=== PATIENT | male | born 1945 | race American Indian/Alaskan Native ===

== ENCOUNTER 2016-12-31 17:36 | Inpatient (IN) | payer MEDICARE, OTHER ==
[2016-12-31 17:51] VITALS: BMI 22.9
--- NOTE | 2016-12-31 19:07 | ED PDOC ---
Arrival/HPI - General Chief Complaint: Male Genitourinary Time Seen by Provider: 12/31/16 18:00 Historian: Spouse - History of Present Illness Narrative History of Present Illness (Text): 12/31/16 19:04 71 year old male presents with blood return in catheter after jackson catheter change at home. states a visiting nurse was trying to change the catheter at home and noticed blood return after placing the new catheter so she pulled the catheter out. states this is the second time this has happened. She says the pt has a chronic jackson due to "bed sores," no retention. reports patient is nonverbal and bedridden at baseline. PMD: Dr. Betts Time/Duration: 24 hours Symptom Onset: Sudden Symptom Course: Unchanged Modifying Factors (Text): None Associated Symptoms (Text): None Past Medical History - Provider Review Nursing Documentation Reviewed: Yes - Infectious Disease Hx of Infectious Diseases: MRSA - Tetanus Immunization Tetanus Immunization: Unknown - Cardiac Hx Hypertension: Yes Hx Pacemaker: No - Pulmonary Hx Respiratory Disorders: No - Neurological Hx Alzheimer's Disease: No HX Cerebrovascular Accident: Yes - HEENT Hx HEENT Disorder: Yes (peg tube) Hx Difficulty Chewing: Yes Hx Glaucoma: Yes (LASER SURGERY) - Renal Hx Renal Disorder: Yes - Endocrine/Metabolic Hx Diabetes Mellitus Type 1: Yes - Hematological/Oncological Hx Blood Transfusions: No Hx Blood Transfusion Reaction: No - Integumentary Other/Comment: multiple decubiti ulcers to sacrum and buttocks, b/l heel wounds , peg insertion site priyanka clear drainage noted - Musculoskeletal/Rheumatological Hx Falls: No - Gastrointestinal Hx Gastrointestinal Disorders: Yes (PEG) Hx Colostomy: Yes Hx Gastroesophageal Reflux: Yes - Genitourinary/Gynecological Hx Genitourinary Disorders: Yes Hx Incontinence: Yes - Psychiatric Hx Emotional Abuse: No Hx Physical Abuse: No Hx Substance Use: No - Past Surgical History Past Surgical History: Unable to Obtain - Surgical History Other/Comment: colostomy, picc in and out - Anesthesia Hx Anesthesia: Yes Hx Anesthesia Reactions: No Hx Malignant Hyperthermia: No - Suicidal Assessment Feels Threatened In Home Enviroment: No Family/Social History - Physician Review Nursing Documentation Reviewed: Yes Family/Social History: Unknown Family HX Smoking Status: Never Smoked Hx Alcohol Use: No Hx Substance Use: No Hx Substance Use Treatment: No Allergies/Home Meds Allergies/Adverse Reactions: Allergies Latex, Natural Rubber Adverse Reaction (Verified 12/31/16 17:51) SWELLING Home Medications: Home Meds Medication Instructions Recorded Confirmed Donepezil HCl [Aricept] 10 mg PO DAILY 12/31/16 12/31/16 Folic Acid 1 mg PO DAILY 12/31/16 12/31/16 Latanoprost 0.005% Opht [XALATAN 1 drp OD DAILY 12/31/16 12/31/16 2.5 Ml] Metoprolol Tartrate [Lopressor] 50 mg PO DAILY 12/31/16 12/31/16 Multivit-Min/FA/Lycopen/Lutein 1 each PO DAILY 12/31/16 12/31/16 [Centrum Silver Tablet] Nut.tx.gluc.intoler,Lac-Fr,Soy 237 ml PO DAILY 12/31/16 12/31/16 [Ensure Glucerna Shake 237 ml] Omeprazole 40 mg PO DAILY 12/31/16 12/31/16 levETIRAcetam [Keppra] 500 mg PO BID 12/31/16 12/31/16 Review of Systems - Review of Systems Systems not reviewed;Unavailable: Other (Nonverbal at baseline) Genitourinary Male: Other (Blood return from catheter) Physical Exam Vital Signs Reviewed: Yes Vital Signs Temp Pulse Resp BP Pulse Ox 12/31/16 23:53 111 H 18 105/64 96 12/31/16 20:56 98 F 100 H 18 127/50 L 100 12/31/16 17:56 98.0 F 74 18 115/71 96 Temperature: Afebrile Blood Pressure: Normal Pulse: Regular Respiratory Rate: Normal Appearance: Positive for: Well-Appearing, Non-Toxic, Comfortable Pain Distress: None Mental Status: Positive for: other (Nonverbal at baseline) - Systems Exam Head: Present: Atraumatic Pupils: Present: PERRL Conjunctiva: Present: Normal Mouth: Present: Moist Mucous Membranes Neck: No: Meningeal Signs Respiratory/Chest: Present: Clear to Auscultation, Good Air Exchange. No: Respiratory Distress, Accessory Muscle Use Cardiovascular: Present: Regular Rate and Rhythm, Normal S1, S2. No: Murmurs Abdomen: Present: Normal Bowel Sounds, Other (Colostomy bag, G-tube in place). No: Tenderness, Distention, Peritoneal Signs Genitourinary Male: Present: Other (Blood clot at urethral meatus) Upper Extremity: Present: Other (Extremities contracted). No: Cyanosis, Edema Lower Extremity: Present: Other (Extremities contracted). No: Edema Neurological: Present: Other (extremities contracted. pt not cooperative w full neuro exam. no focal deficits appreciated.) Skin: Present: Warm, Dry, Other (decub ulcers buttock) Psychiatric: Present: Other (Nonverbal at baseline) Medical Decision Making ED Course and Treatment: pt has latex allergy- latex-free jackson acquired from [facility] however I was unable to pass this catheter. will admit for uro evaluation tomorrow. emily Betts who will admit, req uro consult emily santillan urologist Dr Stephens - Codie Statement The provider has reviewed the documentation as recorded by the Codie Nelson Provider Scribe Attestation: All medical record entries made by the Cliffibe were at my direction and personally dictated by me. I have reviewed the chart and agree that the record accurately reflects my personal performance of the history, physical exam, medical decision making, and the department course for this patient. I have also personally directed, reviewed, and agree with the discharge instructions and disposition. Disposition/Present on Arrival - Present on Arrival Any Indicators Present on Arrival: No History of DVT/PE: No History of Uncontrolled Diabetes: No Urinary Catheter: No History of Decub. Ulcer: No History Surgical Site Infection Following: None - Disposition Have Diagnosis and Disposition been Completed?: Yes Diagnosis: Hematuria Disposition: HOSPITALIZED Disposition Time: 23:09 Patient Problems: Current Active Problems Problem Status Diagnosed Hematuria Acute Condition: STABLE
[2016-12-31 23:13] LABS: ADD MANUAL DIFF? NO
[2016-12-31 23:20] LABS: BASO # 0.03 K/mm3 (0.0-2.0); BASO % 0.2 % (0.0-3.0); EOS % 0.3 % (1.5-5.0); GRAN # 15.04 (1.4-6.5); GRAN % 95.4 % (50.0-68.0); HEMATOCRIT 32.1 % (42.0-52.0); LYMPH # 0.3 (1.2-3.4); LYMPH % 2.1 % (22.0-35.0); MEAN CELL VOLUME 80.5 fL (80.0-105.0); MEAN CORPUSCULAR HEMOGLOBIN 27.1 pg (25.0-35.0); MEAN CORPUSCULAR HGB CONC 33.6 g/dl (31.0-37.0); MEAN PLATELET VOLUME 8.9 fl (7.0-11.0); MONO # 0.3 (0.1-0.6); PLATELET COUNT 459 10^3/uL (120.0-450.0); RED CELL DISTRIBUTION WIDTH 16.2 % (11.5-14.5); WHITE BLOOD COUNT 15.8 10^3/ul (4.5-11.0)
[2016-12-31 23:31] LABS: ALB/GLOB RATIO 0.5 (1.1-1.8); ALKALINE PHOSPHATASE 196 U/L (38-133); ALT/SGPT 59 U/L (7-56); AST/SGOT 72 U/L (15-59); BILIRUBIN,TOTAL 0.5 mg/dL (0.2-1.3); BLOOD UREA NITROGEN 18 mg/dL (7-21); CALCIUM 9.5 mg/dL (8.4-10.5); CARBON DIOXIDE 25 mmol/L (21-33); CHLORIDE 103 mmol/L (98-107); GFR AFRICAN-AMERICAN > 60; GLUCOSE,RANDOM 153 mg/dL (70-110); SODIUM 136 mmol/L (132-148); TOTAL PROTEIN 9.7 g/dL (5.8-8.3)
[2017-01-01] MEDS ORDERED: Sodium Chloride 0.9% 1,000 ML IV SCH (01:00)
[2017-01-01] MEDS: Multi Vitamins 15 mL UD Oral Solution PO SCH (11:15)
[2017-01-01] MEDS: levETIRAcetam 500 mg/5ml UD cups PO SCH ×2 (11:15→18:39)
[2017-01-01 11:32] LABS: PH,URINE 8.5 (4.7-8.0); URINE BILIRUBIN SMALL (NEGATIVE); URINE BLOOD LARGE (NEGATIVE); URINE GLUCOSE (UA) NEGATIVE (NEGATIVE); URINE KETONE TRACE mg/dL (NEGATIVE); URINE LEUKOCYTE ESTERASE LARGE Leu/uL (NEGATIVE); URINE PROTEIN 100 mg/dL (<30 mg/dL)
[2017-01-01 11:35] LABS: URINE APPEARANCE TURBID (CLEAR); URINE COLOR RED (YELLOW)
[2017-01-01 11:45] LABS: URINE BACTERIA MOD (NEG); URINE EPITHELIAL CELLS 0 - 2 /hpf (0-5); URINE RBC TNTC /hpf (0-2); URINE WBC 15 - 20 /hpf (0-6)
[2017-01-01] MEDS: cefTRIAXone 1 gm 100 ML IVPB SCH (12:20)
[2017-01-01] MEDS: Sodium Chloride 0.45% 1,000 ML IV SCH (12:21)
--- NOTE | 2017-01-01 12:58 | HP ---
HISTORY OF PRESENT ILLNESS: I know the patient very well for many years of doing house calls. I received a phone call last night from a visiting nurse who tried to change his Machado catheter at home. She could not get the new Machado in place, blood was everywhere. We sent to the Emergency Room thinking the Emergency Room could replace the Machado yesterday. Apparently HE IS ALLERGIC TO LATEX and they could not have a non-latex Machado catheter anywhere in the hospital to be found, so we kept overnight to see if the could bring one in from home. She brought one in from home and apparently they could not put it in, so I discussed this with the nurse at this time to do it with the house doctor. I also called in urology and the nurse told me the urologist will not come in today to do this. Also, I just found out this morning, that he has a 15,000 white count, nobody let me know that, so I am going to make him an inpatient, put him on IV antibiotics, get infectious disease involved and give him IV fluids and see if we can get the Machado in and may be in the next day or 2, urology can reassess the situation. He is bedbound; contracted; dementia; colostomy; feeding tube; nonverbal; multiple bedsores, heels sacrum in and out of stages; he is nonverbal at home for years. He had a CVA, he had glaucoma, laser surgery, he has diabetes. Decubitus ulcers, multiple on the sacrum, the ulcers on the heels I want to get surgery to look at him while he is here, colostomy, PEG tube, reflux, he is incontinent. ALLERGIES: LATEX AND NATURAL RUBBER ADVERSE REACTION WITH SWELLING. MEDICATIONS: He is on Aricept, folic acid, Xalatan, Lopressor, Centrum Silver, Glucerna, omeprazole, Keppra for seizures which he also has. He is nonverbal, but he is less aware and less responsive than he usually is. He appears septic, he is not looking his baseline for me. PHYSICAL EXAMINATION: VITAL SIGNS: He has a 98 temp, 111 pulse, 18 respiratory rate, 105/64 blood pressure, 96% O2 sat on room air. HEENT: Head is atraumatic, normocephalic. His eyes are staring up. Throat is dry. NECK: supple HEART: Regular rate. LUNGS: Decreased breath sounds, poor inspiration. ABDOMEN: Soft, has a colostomy, a feeding tube which is okay. EXTREMITIES: He has contracture in all 4 extremities with ulcers on his heels and sacrum area all in different levels of healing. NEUROLOGIC: Head atraumatic. Extraocular muscles are not following anything. Not alert at all. LABORATORY DATA: [place] 406[address].8 white count, 10.8 hemoglobin, 32.1 hematocrit , 459, platelets. Sodium 136, potassium 5, BUN 18, creatinine 0.9, GFR is greater than 60, sugar is 153, calcium 9.5, AST 72, ALT is 59, alkaline phosphatase is 196. His liver enzymes are elevated, I will call in GI for evaluation. Urine is large leukocytes, moderate bacteria. He is here for hematuria with Machado change, urinary tract infection 15,000 white count could be urosepsis. I called in urology: I will call in gastrointestinal, infectious disease and surgery for his multiple decubitus ulcers. Maykel Betts DO cc: [id number] TT: 01/01/2017 12:57:30 jn MTDD
[2017-01-01] MEDS: metroNIDAZOLE IV 500 mg/100 ml 100 ML IVPB SCH ×2 (14:19→22:48)
[2017-01-01] MEDS: Cefepime IV 2 gm in NS 100 ML IVPB SCH ×2 (14:20→22:48)
[2017-01-01] MEDS: Vancomycin 1gm in NS 250ml 250 ML IVPB SCH (14:21)
[2017-01-01] MEDS: Latanoprost 2.5 ml Opht Soln OD SCH (22:49)
[2017-01-02] MEDS: Vancomycin 1gm in NS 250ml 250 ML IVPB SCH ×2 (02:00→15:14)
[2017-01-02] MEDS: Cefepime IV 2 gm in NS 100 ML IVPB SCH (05:17)
--- NOTE | 2017-01-02 06:24 | CP.PCM.PN ---
Subjective - Date & Time of Evaluation Date of Evaluation: 01/01/17 Time of Evaluation: 22:00 - Subjective Subjective: # 24 angiocath was inserted in left arm. Dx:Poor venous access. Objective - Vital Signs/Intake and Output Vital Signs (last 24 hours): Temp Pulse Resp BP Pulse Ox 97.4 F L 84 22 100/60 98 01/01/17 16:24 01/01/17 18:39 01/01/17 16:24 01/01/17 18:39 01/01/17 16:24 Intake and Output: 01/01/17 01/02/17 18:59 06:59 Intake Total 1470 Output Total 1600 Balance -130 - Medications Medications: Current Medications Donepezil HCl (Aricept) 10 mg PO HS [facility] Last Admin: 01/01/17 22:48 Dose: 10 mg Folic Acid (Folic Acid) 1 mg PO DAILY [facility] Last Admin: 01/01/17 11:16 Dose: 1 mg Ceftriaxone Sodium (Rocephin 1 Gram Ivpb) 100 mls @ 100 mls/hr IVPB DAILY [facility] PRN Reason: Protocol Last Admin: 01/01/17 12:20 Dose: Not Given Sodium Chloride (Sodium Chloride 0.45%) 1,000 mls @ 40 mls/hr IV .Q24H [facility] Last Admin: 01/01/17 12:21 Dose: Not Given Cefepime HCl (Maxipime 2gm) 100 mls @ 100 mls/hr IVPB Q8 [facility] PRN Reason: Protocol Stop: 01/06/17 14:01 Last Admin: 01/02/17 05:17 Dose: 100 mls/hr Metronidazole (Flagyl) 100 mls @ 100 mls/hr IVPB Q8 [facility] PRN Reason: Protocol Last Admin: 01/01/17 22:48 Dose: 100 mls/hr Vancomycin HCl (Vancomycin 1gm) 250 mls @ 167 mls/hr IVPB Q12H [facility] PRN Reason: Protocol Last Admin: 01/02/17 02:00 Dose: 167 mls/hr Latanoprost (Xalatan Opht) 1 ml OD HS [facility] Last Admin: 01/01/17 22:49 Dose: 1 ml Levetiracetam (Keppra) 500 mg PO BID [facility] Last Admin: 01/01/17 18:39 Dose: 500 mg Metoprolol Tartrate (Lopressor) 25 mg PO BID [facility] Last Admin: 01/01/17 18:39 Dose: 25 mg Multivitamins/Vitamin C (Multi-Delyn Liquid) 15 ml PO DAILY [facility] Last Admin: 01/01/17 11:15 Dose: 15 ml Pantoprazole Sodium (Protonix Susp) 40 mg PO DAILY [facility]
[2017-01-02] MEDS: metroNIDAZOLE IV 500 mg/100 ml 100 ML IVPB SCH ×2 (06:43→13:09)
[2017-01-02 07:33] LABS: HEMATOCRIT 27.9 % (42.0-52.0); MEAN CELL VOLUME 79.9 fL (80.0-105.0); MEAN CORPUSCULAR HEMOGLOBIN 26.6 pg (25.0-35.0); MEAN CORPUSCULAR HGB CONC 33.3 g/dl (31.0-37.0); MEAN PLATELET VOLUME 9.1 fl (7.0-11.0); RED CELL DISTRIBUTION WIDTH 16.5 % (11.5-14.5); WHITE BLOOD COUNT 9.9 10^3/ul (4.5-11.0)
--- NOTE | 2017-01-02 07:45 | CP.PCM.CON ---
History of Present Illness - History of Present Illness History of Present Illness: Asked by Dr. Betts for a GI consultation on this patient. 71 year old male with history of multiple CVAs, advanced dementia (non-verbal at baseline), recurrent UTI, stage IV sacral and heel ulcers (patient bed ridden) s/p diverting colostomy, DM, HTN, who is admitted to hospital for evaluation of hematuria and sepsis. GI called for evaluation of elevated LFTs. Patient himself is not able to communicate effectively and therefore additional information obtained via chart review, discussion with nursing staff, and patient family member. There is no reported abdominal pain, nausea, vomiting, fever/chills. Review of vitals from yesterday afternoon are normal. Social history: unable to obtain due to patient mental status Family history: unable to obtain due to patient mental status Review of Systems - Review of Systems Systems not reviewed;Unavailable: Dementia Past Patient History - Infectious Disease Hx of Infectious Diseases: MRSA - Tetanus Immunizations Tetanus Immunization: Unknown - Past Social History Smoking Status: Never Smoked - CARDIAC Hx Hypertension: Yes - PULMONARY Hx Respiratory Disorders: No - NEUROLOGICAL Hx Alzheimer's Disease: Yes HX Cerebrovascular Accident: Yes - HEENT Hx HEENT Problems: Yes (peg tube) Hx Difficulty Chewing: Yes Hx Glaucoma: Yes (LASER SURGERY) - RENAL Hx Chronic Kidney Disease: Yes - ENDOCRINE/METABOLIC Hx Diabetes Mellitus Type 1: Yes - HEMATOLOGICAL/ONCOLOGICAL Hx Blood Disorders: No - INTEGUMENTARY Other/Comment: multiple decubiti ulcers to sacrum and buttocks, b/l heel wounds , 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 - MUSCULOSKELETAL/RHEUMATOLOGICAL Hx Falls: No - GASTROINTESTINAL Hx Gastrointestinal Disorders: Yes (PEG) Hx Colostomy: Yes Hx Gastroesophageal Reflux: Yes - GENITOURINARY/GYNECOLOGICAL Hx Genitourinary Disorders: Yes Hx Incontinence: Yes - PSYCHIATRIC Hx Emotional Abuse: No Hx Physical Abuse: No - SURGICAL HISTORY Hx Surgeries: Yes Other/Comment: colostomy, picc in and out - ANESTHESIA Hx Anesthesia: Yes Hx Anesthesia Reactions: No Hx Malignant Hyperthermia: No Meds Allergies/Adverse Reactions: Allergies Allergy/AdvReac Type Severity Reaction Status Date / Time Latex, Natural Rubber AdvReac SWELLING Verified 12/31/16 17:51 - Medications Medications: Current Medications Donepezil HCl (Aricept) 10 mg PO HS [facility] Last Admin: 01/01/17 22:48 Dose: 10 mg Folic Acid (Folic Acid) 1 mg PO DAILY [facility] Last Admin: 01/01/17 11:16 Dose: 1 mg Ceftriaxone Sodium (Rocephin 1 Gram Ivpb) 100 mls @ 100 mls/hr IVPB DAILY [facility] PRN Reason: Protocol Last Admin: 01/01/17 12:20 Dose: Not Given Sodium Chloride (Sodium Chloride 0.45%) 1,000 mls @ 40 mls/hr IV .Q24H [facility] Last Admin: 01/01/17 12:21 Dose: Not Given Cefepime HCl (Maxipime 2gm) 100 mls @ 100 mls/hr IVPB Q8 [facility] PRN Reason: Protocol Stop: 01/06/17 14:01 Last Admin: 01/02/17 05:17 Dose: 100 mls/hr Metronidazole (Flagyl) 100 mls @ 100 mls/hr IVPB Q8 [facility] PRN Reason: Protocol Last Admin: 01/02/17 06:43 Dose: 100 mls/hr Vancomycin HCl (Vancomycin 1gm) 250 mls @ 167 mls/hr IVPB Q12H [facility] PRN Reason: Protocol Last Admin: 01/02/17 02:00 Dose: 167 mls/hr Latanoprost (Xalatan Opht) 1 ml OD HS [facility] Last Admin: 01/01/17 22:49 Dose: 1 ml Levetiracetam (Keppra) 500 mg PO BID [facility] Last Admin: 01/01/17 18:39 Dose: 500 mg Metoprolol Tartrate (Lopressor) 25 mg PO BID [facility] Last Admin: 01/01/17 18:39 Dose: 25 mg Multivitamins/Vitamin C (Multi-Delyn Liquid) 15 ml PO DAILY [facility] Last Admin: 01/01/17 11:15 Dose: 15 ml Pantoprazole Sodium (Protonix Susp) 40 mg PO DAILY [facility] Physical Exam - Constitutional Appears: No Acute Distress, Cachectic, Chronically Ill - Head Exam Head Exam: NORMAL INSPECTION - Eye Exam Eye Exam: Normal appearance, PERRL - ENT Exam ENT Exam: Mucous Membranes Dry - Respiratory Exam Additional comments: coarse breath sounds b/l lung collado - Cardiovascular Exam Cardiovascular Exam: REGULAR RHYTHM, +S1, +S2 - GI/Abdominal Exam GI & Abdominal Exam: Normal Bowel Sounds, Soft Additional comments: non tender to palpation in four quadrants no palpable hepato/splenomegaly PEG site appears clean/dry LLQ colostomy site with soft brown stool in bag - Extremities Exam Additional comments: b/l lower extremity heel ulcers - Neurological Exam Additional comments: Patient unable to participate in neurological exam - Psychiatric Exam Psychiatric exam: Normal Affect - Skin Skin Exam: Dry, Intact, Normal Color, Warm Results - Vital Signs Recent Vital Signs: Last Vital Signs Temp 97.4 F L 01/01/17 16:24 Pulse 84 01/01/17 18:39 Resp 22 01/01/17 16:24 BP 100/60 01/01/17 18:39 Pulse Ox 98 01/01/17 16:24 - Labs Result Diagrams: 12/31/16 23:05 12/31/16 23:05 Labs: Laboratory Results - last 24 hr 01/01/17 01/02/17 16:22 07:23 POC Glucose (mg/dL) 99 103 Assessment & Plan - Assessment and Plan (Free Text) Assessment: Multiple CVAs Advanced dementia Stage IV sacral and heel ulcers Hematuria - resolved Sepsis - UTI Transaminitis - unclear etiology, possibly cholestasis of sepsis, hepatitis panel negative in August 2016 Plan: - Continue with tube feeding as tolerated, strict aspiration precautions with head elevation during feeding - Obtain abdominal US, avoid hepatotoxic therapy - Continue with antibiotic therapy as per ID - Awaiting results of blood and urine cultures - Will continue to monitor patient clinical course
--- NOTE | 2017-01-02 07:46 | RAD ---
HISTORY: r/o pneumothorax COMPARISON: No prior. FINDINGS: LUNGS: No active pulmonary disease. PLEURA: No significant pleural effusion identified, no pneumothorax apparent. CARDIOVASCULAR: Normal. OSSEOUS STRUCTURES: No significant abnormalities. VISUALIZED UPPER ABDOMEN: Normal. OTHER FINDINGS: None. IMPRESSION: No active disease.
[2017-01-02 07:51] LABS: ALB/GLOB RATIO 0.6 (1.1-1.8); ALKALINE PHOSPHATASE 175 U/L (38-133); ALT/SGPT 59 U/L (7-56); AST/SGOT 55 U/L (15-59); BILIRUBIN,TOTAL 0.2 mg/dL (0.2-1.3); BLOOD UREA NITROGEN 18 mg/dL (7-21); CARBON DIOXIDE 23 mmol/L (21-33); CHLORIDE 107 mmol/L (95-110); GFR AFRICAN-AMERICAN > 60; GLUCOSE,RANDOM 88 mg/dL (70-110); POTASSIUM 4.5 mmol/L (3.6-5.0); SODIUM 139 mmol/L (132-148); TOTAL PROTEIN 8.1 g/dL (5.8-8.3)
[2017-01-02] MEDS: Multi Vitamins 15 mL UD Oral Solution PO SCH (10:15)
[2017-01-02] MEDS: Pantoprazole 40 mg Susp UD PO SCH (10:15)
[2017-01-02] MEDS: levETIRAcetam 500 mg/5ml UD cups PO SCH ×2 (10:15→18:03)
[2017-01-02] MEDS: cefTRIAXone 1 gm 100 ML IVPB SCH (10:16)
--- NOTE | 2017-01-02 10:47 | PN ---
DATE: 01/02/2017 I know the patient very well from house calls and hospital visits. He is currently being seen by Dr. Geller for elevated LFTs, surgery for multiple ulcers, urology for a Machado that they could not place, infectious disease for IV antibiotics. He is currently on IV fluids, Aricept, Flagyl IV, folic acid, Keppra for his seizure history, Lopress or, cefepime for infection, multivitamin, Protonix, Rocephin IV, vancomycin IV and Xalatan. His eyes are open. He was looking at me, but he does not speak. He had multiple CVAs and demented, contracted in bed and he is bedridden. PHYSICAL EXAMINATION: VITAL SIGNS: He has a 98.6 temp, 87 pulse, 117/61 blood pressure, 18 respiratory rate, 97% O2 sat on room air. HEENT: His head is atraumatic, normocephalic. His eyes are open, very much alert this morning, look ing at me. Throat is dry. HEART: Regular rate. LUNGS: Have decreased breath sounds, but clear to auscultation, not to his baseline, poor inspiratio n. ABDOMEN: Soft. He has got a colostomy and a feeding tube. GENITOURINARY: He has got a Machado placed in finally, latex-free, by the urologist. EXTREMITIES: Are all contracted. He has got heel ulcers and sacral ulcers, all in different levels of degree of healing. He has a white count that is down to 9.9 on antibiotics, 9.3 hemoglobin, 27.9 hematocrit with 410 malena telets. He has a 139 sodium, potassium 4.5, BUN is 18, creatinine 0.8, GFR is greater than 60, sugar is 88, calcium is 9, total bili is 0.2, AST is 55, ALT is 59, alk phos is 175 and total protein is 8 .1. His procalcitonin is 10.58, very high. He was seen by GI already. Chest x-ray showed no active disease. I believe he has got urosepsis. O rders were given by infectious disease. Waiting for surgery to populate. I will continue with IV an tibiotics. We will continue with aggressive treatment and care, IV antibiotics, wound care, GI eval, IV fluids, medicines and hopefully he will be improved and I am glad the Machado catheter was placed a nd there is no more blood in the urine. Maykel Betts DO cc: [id number] TT: 01/02/2017 10:45:57 Confirmation # [id number] Dictation # [id number]
--- NOTE | 2017-01-02 13:45 | CP.PCM.CON ---
History of Present Illness - History of Present Illness History of Present Illness: 71 year old male with PMH of CVA, DM, HTN, dementia, decubitus ulcer of the hip area, S/P colostomy on the left was brought in to [facility] because of hematuria from the Machado catheter as noted by the family. The patient also has hip decubitus ulcers. There is no note of fever, no convulsions , no loss of consciousness, no note of watery stools in the colostomy bag. Full review of systems is difficult to obtain because of the patient's dementia. Infectious diseases consult is requested to further evaluate and manage. Review of Systems - Review of Systems Systems not reviewed;Unavailable: Dementia Past Patient History - Infectious Disease Hx of Infectious Diseases: MRSA - Tetanus Immunizations Tetanus Immunization: Unknown - Past Social History Smoking Status: Never Smoked - CARDIAC Hx Hypertension: Yes - PULMONARY Hx Respiratory Disorders: No - NEUROLOGICAL Hx Alzheimer's Disease: Yes HX Cerebrovascular Accident: Yes - HEENT Hx HEENT Problems: Yes (peg tube) Hx Difficulty Chewing: Yes Hx Glaucoma: Yes (LASER SURGERY) - RENAL Hx Chronic Kidney Disease: Yes - ENDOCRINE/METABOLIC Hx Diabetes Mellitus Type 1: Yes - HEMATOLOGICAL/ONCOLOGICAL Hx Blood Disorders: No - INTEGUMENTARY Other/Comment: multiple decubiti ulcers to sacrum and buttocks, b/l heel wounds , 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 - MUSCULOSKELETAL/RHEUMATOLOGICAL Hx Falls: No - GASTROINTESTINAL Hx Gastrointestinal Disorders: Yes (PEG) Hx Colostomy: Yes Hx Gastroesophageal Reflux: Yes - GENITOURINARY/GYNECOLOGICAL Hx Genitourinary Disorders: Yes Hx Incontinence: Yes - PSYCHIATRIC Hx Emotional Abuse: No Hx Physical Abuse: No - SURGICAL HISTORY Hx Surgeries: Yes Other/Comment: colostomy, picc in and out - ANESTHESIA Hx Anesthesia: Yes Hx Anesthesia Reactions: No Hx Malignant Hyperthermia: No Meds Allergies/Adverse Reactions: Allergies Allergy/AdvReac Type Severity Reaction Status Date / Time Latex, Natural Rubber AdvReac SWELLING Verified 12/31/16 17:51 - Medications Medications: Current Medications Donepezil HCl (Aricept) 10 mg PO HS [facility] Folic Acid (Folic Acid) 1 mg PO DAILY [facility] Last Admin: 01/01/17 11:16 Dose: 1 mg Sodium Chloride (Sodium Chloride 0.9%) 1,000 mls @ 83 mls/hr IV .Q12H3M [facility] Ceftriaxone Sodium (Rocephin 1 Gram Ivpb) 100 mls @ 100 mls/hr IVPB DAILY [facility] PRN Reason: Protocol Sodium Chloride (Sodium Chloride 0.45%) 1,000 mls @ 40 mls/hr IV .Q24H [facility] Cefepime HCl (Maxipime 2gm) 100 mls @ 100 mls/hr IVPB Q8 [facility] PRN Reason: Protocol Stop: 01/06/17 14:01 Metronidazole (Flagyl) 100 mls @ 100 mls/hr IVPB Q8 [facility] PRN Reason: Protocol Vancomycin HCl (Vancomycin 1gm) 250 mls @ 167 mls/hr IVPB Q12H [facility] PRN Reason: Protocol Latanoprost (Xalatan Opht) 1 ml OD HS [facility] Levetiracetam (Keppra) 500 mg PO BID [facility] Last Admin: 01/01/17 11:15 Dose: 500 mg Metoprolol Tartrate (Lopressor) 25 mg PO BID [facility] Last Admin: 01/01/17 11:35 Dose: 25 mg Multivitamins/Vitamin C (Multi-Delyn Liquid) 15 ml PO DAILY [facility] Last Admin: 01/01/17 11:15 Dose: 15 ml Pantoprazole Sodium (Protonix Susp) 40 mg PO DAILY [facility] Physical Exam - Constitutional Appears: Non-toxic, No Acute Distress - Head Exam Head Exam: NORMAL INSPECTION - ENT Exam ENT Exam: Mucous Membranes Moist - Neck Exam Neck exam: Negative for: Lymphadenopathy, Meningismus - Respiratory Exam Respiratory Exam: Decreased Breath Sounds - Cardiovascular Exam Cardiovascular Exam: +S1, +S2 - GI/Abdominal Exam GI & Abdominal Exam: Soft. absent: Tenderness Additional comments: left sided colostomy in place - Extremities Exam Additional comments: bilateral hip area decubitus ulcers with dry dressings in place Results - Vital Signs Recent Vital Signs: Last Vital Signs Temp 97.8 F 01/01/17 07:56 Pulse 93 H 01/01/17 11:35 Resp 20 01/01/17 07:56 BP 102/55 L 01/01/17 11:35 Pulse Ox 99 01/01/17 07:56 - Labs Result Diagrams: 01/02/17 07:30 01/02/17 07:30 Assessment & Plan - Assessment and Plan (Free Text) Plan: Assessment consider infected decubitus ulcers of the right and left hip areas history of UTI with Pseudomonas history of C diff associated diarrhea CVA DM HTN dementia decubitus ulcer of the hip area Plan started Vancomycin and meropenem pending final wound and blood cx results will monitor clinically
[2017-01-02] MEDS: Meropenem 1g/NS 100mL IVPB 100 ML IVPB SCH ×2 (14:10→21:08)
[2017-01-02] MEDS: Sodium Chloride 0.45% 1,000 ML IV SCH (15:15)
--- NOTE | 2017-01-02 16:01 | US ---
HISTORY: elevated LFTs COMPARISON: None. TECHNIQUE: Sonographic evaluation of the abdomen. FINDINGS: LIVER: Measures cm. Normal echogenicity of the liver parenchyma. No mass. No intrahepatic bile duct dilatation. GALLBLADDER: Unremarkable. No gallstones. COMMON BILE DUCT: Measures mm. No stones. No dilatation. PANCREAS: Unremarkable as visualized. No mass. No ductal dilatation. RIGHT KIDNEY: Measures cm. 1.3 centimeter cyst. LEFT KIDNEY: Measures cm. 3.1 centimeter cyst. SPLEEN: 14 centimeters. AORTA: No aneurysmal dilatation. IVC: Unremarkable. OTHER FINDINGS: None. IMPRESSION: Bilateral simple renal cysts. Mild splenomegaly.
--- NOTE | 2017-01-02 16:21 | CP.PCM.CON ---
History of Present Illness - History of Present Illness History of Present Illness: Surgery Consult Note. Dr. Carney 71yo M with PMHx of CVA, DM, HTN, Dementia, Decubitus ulcers hip and sacrum, colostomy, PEG brought in by family for evaluation of hematuria. Hx obtained from chart review. Patient has a hx of contractures secondary to multiple previous CVAs. Patient uses chronic jackson's at home due to patient being bed bound. Advanced dementia, nonverbal at baseline. Surgical consult was obtained for multiple wounds on sacrum, bilateral hips and superficial ulcer on right foot. Complete ROS unobtainable due to patient condition. Patient does not seem to have any abdominal pain. No apparent complaints. PMD: Dr. Betts PMHx: Multiple CVAs, DM, HTN, Advanced Dementia (non-verbal), Decubitus ulcer bilateral hip and sacrum, Diverting colostomy, PEG PSHx: Unknown. Diverting colostomy, PEG Social Hx: Lives at home with . Unknown Family Hx: unobtainable Allergy: Latex Review of Systems - Review of Systems Systems not reviewed;Unavailable: Dementia, Altered Mental Status Past Patient History - Infectious Disease Hx of Infectious Diseases: MRSA - Tetanus Immunizations Tetanus Immunization: Unknown - Past Social History Smoking Status: Never Smoked - CARDIAC Hx Hypertension: Yes - PULMONARY Hx Respiratory Disorders: No - NEUROLOGICAL Hx Alzheimer's Disease: Yes HX Cerebrovascular Accident: Yes - HEENT Hx HEENT Problems: Yes (peg tube) Hx Difficulty Chewing: Yes Hx Glaucoma: Yes (LASER SURGERY) - RENAL Hx Chronic Kidney Disease: Yes - ENDOCRINE/METABOLIC Hx Diabetes Mellitus Type 1: Yes - HEMATOLOGICAL/ONCOLOGICAL Hx Blood Disorders: No - INTEGUMENTARY Other/Comment: multiple decubiti ulcers to sacrum and buttocks, b/l heel wounds , peg insertion site priyanka clear drainage noted - MUSCULOSKELETAL/RHEUMATOLOGICAL Hx Falls: No - GASTROINTESTINAL Hx Gastrointestinal Disorders: Yes (PEG) Hx Colostomy: Yes Hx Gastroesophageal Reflux: Yes - GENITOURINARY/GYNECOLOGICAL Hx Genitourinary Disorders: Yes Hx Incontinence: Yes - PSYCHIATRIC Hx Emotional Abuse: No Hx Physical Abuse: No - SURGICAL HISTORY Hx Surgeries: Yes Other/Comment: colostomy, picc in and out - ANESTHESIA Hx Anesthesia: Yes Hx Anesthesia Reactions: No Hx Malignant Hyperthermia: No Meds Allergies/Adverse Reactions: Allergies Allergy/AdvReac Type Severity Reaction Status Date / Time Latex, Natural Rubber AdvReac SWELLING Verified 12/31/16 17:51 - Medications Medications: Current Medications Donepezil HCl (Aricept) 10 mg PO HS [facility] Last Admin: 01/01/17 22:48 Dose: 10 mg Folic Acid (Folic Acid) 1 mg PO DAILY [facility] Last Admin: 01/02/17 10:14 Dose: 1 mg Sodium Chloride (Sodium Chloride 0.45%) 1,000 mls @ 40 mls/hr IV .Q24H [facility]CLUD[facility] Last Admin: 01/02/17 15:15 Dose: Not Given Vancomycin HCl (Vancomycin 1gm) 250 mls @ 167 mls/hr IVPB Q12H [facility] PRN Reason: Protocol Last Admin: 01/02/17 15:14 Dose: 167 mls/hr Meropenem 1g/NS 100mL IVPB (Meropenem 1g/Ns 100ml Ivpb) 100 mls @ 100 mls/hr IVPB Q8 [facility] PRN Reason: Protocol Stop: 01/09/17 14:01 Last Admin: 01/02/17 14:10 Dose: 100 mls/hr Latanoprost (Xalatan Opht) 1 ml OD HS [facility] Last Admin: 01/01/17 22:49 Dose: 1 ml Levetiracetam (Keppra) 500 mg PO BID [facility] Last Admin: 01/02/17 10:15 Dose: 500 mg Metoprolol Tartrate (Lopressor) 25 mg PO BID [facility] Last Admin: 01/02/17 10:14 Dose: 25 mg Multivitamins/Vitamin C (Multi-Delyn Liquid) 15 ml PO DAILY [facility] Last Admin: 01/02/17 10:15 Dose: 15 ml Pantoprazole Sodium (Protonix Susp) 40 mg PO DAILY [facility] Last Admin: 01/02/17 10:15 Dose: 40 mg Physical Exam - Constitutional Appears: No Acute Distress, Cachectic, Chronically Ill - Head Exam Head Exam: ATRAUMATIC, NORMAL INSPECTION, NORMOCEPHALIC Additional comments: Contracted head to the left - Cardiovascular Exam Cardiovascular Exam: absent: JVD - GI/Abdominal Exam GI & Abdominal Exam: Soft Additional comments: Soft, Nontender, nondistended. Colostomy in place with soft brown stool in bag. PEG site intact. - Extremities Exam Extremities exam: Positive for: normal inspection - Neurological Exam Additional comments: Baseline dementia - Skin Additional comments: R ishial decubitus: Stage 4. Foul smelling. dressing changed, clean and dry. L ishial decubitus: Stage 2, dressing changed clean and dry. Sacral Decubitus: Stage 1/2, Dressing changed clean and dry. healing well R foot with contracture and stage 1 ulcer on dorsal/medial aspect of foot. Results - Vital Signs Recent Vital Signs: Last Vital Signs Temp 98.6 F 01/02/17 08:00 Pulse 87 01/02/17 08:00 Resp 18 01/02/17 08:00 BP 139/60 01/02/17 10:14 Pulse Ox 97 01/02/17 08:00 - Labs Result Diagrams: 01/02/17 07:30 01/02/17 07:30 Labs: Laboratory Results - last 24 hr 01/01/17 01/02/17 01/02/17 16:22 07:23 07:30 WBC 9.9 D RBC 3.49 L Hgb 9.3 L Hct 27.9 L MCV 79.9 L MCH 26.6 MCHC 33.3 RDW 16.5 H Plt Count 410 MPV 9.1 Sodium 139 Potassium 4.5 Chloride 107 Carbon Dioxide 23 Anion Gap 14 BUN 18 Creatinine 0.8 Est GFR ( Amer) > 60 Est GFR (Non-Af Amer) > 60 POC Glucose (mg/dL) 99 103 Random Glucose 88 Calcium 9.0 Total Bilirubin 0.2 AST 55 ALT 59 H Alkaline Phosphatase 175 H Total Protein 8.1 Albumin 3.1 Globulin 5.0 Albumin/Globulin Ratio 0.6 L 01/02/17 16:03 WBC RBC Hgb Hct MCV MCH MCHC RDW Plt Count MPV Sodium Potassium Chloride Carbon Dioxide Anion Gap BUN Creatinine Est GFR ( Amer) Est GFR (Non-Af Amer) POC Glucose (mg/dL) 98 Random Glucose Calcium Total Bilirubin AST ALT Alkaline Phosphatase Total Protein Albumin Globulin Albumin/Globulin Ratio Assessment & Plan - Assessment and Plan (Free Text) Assessment: 71yo M with multiple decubiti: R Elial, L Ishial, Sacral. - Air Mattress - Turn patient q2h - Heel supports - Duoderm dressing changes prn. Alginate to R ischial - Jackson care - Colostomy care - GI, Urology, and ID consults noted - Continue ABX, f/u wound cxs Discussed case with Dr. Rommel Guerra PGY1 surgery pager: [phone] Proc: Central Venous Access - Time Out Time Out: Side verified, Site verified, Patient ID confirmed, Sterile procedures obs. - Procedure Procedure: Central Line placement: Right Technique:: Seldinger technique, Ultrasound guidance, Internal jugular vein - Consent obtained Consent obtained: Written - Performed by Performed by: Mid-level Provider - Indications Indication(s):: Peripheral vein unobtain., Mult.intravenous meds Contraindications: None Tube type:: Triple lumen - Local Anesthetic Local Anesthetic: Lidocaine: 5cc lidocaine - Number of Attempts Attempts: 3 - Complications Complications: Unable to obtain access.
[2017-01-02] MEDS: Latanoprost 2.5 ml Opht Soln OD SCH (21:09)
[2017-01-03] MEDS: Vancomycin 1gm in NS 250ml 250 ML IVPB SCH ×2 (03:50→15:07)
[2017-01-03] MEDS: Meropenem 1g/NS 100mL IVPB 100 ML IVPB SCH ×3 (05:52→23:08)
[2017-01-03 07:56] LABS: HEMATOCRIT 28.2 % (42.0-52.0); MEAN CELL VOLUME 80.8 fL (80.0-105.0); MEAN CORPUSCULAR HEMOGLOBIN 26.1 pg (25.0-35.0); MEAN CORPUSCULAR HGB CONC 32.3 g/dl (31.0-37.0); MEAN PLATELET VOLUME 9.3 fl (7.0-11.0); RED CELL DISTRIBUTION WIDTH 16.5 % (11.5-14.5); WHITE BLOOD COUNT 7.6 10^3/ul (4.5-11.0)
--- NOTE | 2017-01-03 08:17 | CON ---
DATE: 01/01/2017 CHIEF COMPLAINT: Machado catheter problem. HISTORY OF PRESENT ILLNESS: This is a 71-year-old male with a history of multiple CVAs and contracti ons, decubital ulcers, question of urinary retention versus an indwelling Machado catheter for wound pu rposes. The patient was at home. Apparently, VNS tried to change his Machado catheter unsuccessfully and had some bleeding and, therefore, the patient was sent to the Emergency Room to have the Machado ca theter placed. Apparently, the patient has a LATEX ALLERGY. In the Emergency Room, the patient did not have the Machado catheter replaced because there were no non-latex Machado catheters available at the hospital. Reportedly, a Machado catheter was obtained from [facility], at which time someone in the ER did attempt to place a Machado catheter, which is unclear whether that is the case or not. Baumann eusebio, this was unsuccessful. The patient was then admitted to the hospital. His family did bring a F o[place] catheter, which is at bedside. The patient has been voiding without difficulty into a [employer] cat heter, which has been in place since yesterday. The urine initially was blood tinged, but has now cl eared. A bladder scan done earlier in the day showed 120 mL and, by nursing report, the patient has been voiding adequately. He has no fever or chills. Urinalysis was infected; however, the patient h as history of an indwelling Machado catheter. The patient was admitted for wound care and antibiotics. PAST MEDICAL HISTORY: Multiple CVAs, contractions, question of urinary retention, multiple decubital ulcers, bedbound, nonverbal, dementia, diabetes. MEDICATIONS AT HOME INCLUDE: Aricept, folic acid, Xalatan, Lopressor, Glucerna, omeprazole, Keppra. ALLERGIES: LATEX and NATURAL RUBBER. FAMILY HISTORY: The patient lives at home. SOCIAL HISTORY: No smoking or ETOH use. REVIEW OF SYSTEMS: Could not be obtained other than what is present in the HPI. PHYSICAL EXAMINATION: GENERAL: The patient is in no acute distress. He is contracted, nonresponsive, in his hospital bed. VITAL SIGNS: He is afebrile. Temp of 97.4, pulse of 84, blood pressure 100/60, respirations 22. NECK: Shows no obvious mass or adenopathy. HEAD: Normocephalic, atraumatic. CHEST: Shows a normal inspiratory effort. CARDIAC: Positive S1, S2. There is no peripheral edema. ABDOMEN: Soft. There is a feeding tube and colostomy present. There is no apparent tenderness. GENITOURINARY: Bladder is not palpably distended, but it is difficult to tell. GENITOURINARY: Phallus is normal, uncircumcised, with a phimotic foreskin. Scrotum is normal. Test es are bilaterally descended. No tenderness noted. No mass noted. Epididymi, no tenderness or mass noted. EXTREMITIES: The patient is contracted in his upper and lower extremities. There are dressings on m ultiple decubital ulcers on his heels and lower back. LABORATORY DATA: The patient had a WBC count of 15.8. GFR greater than 60. Urinalysis: Positive n itrites, 15-20 WBCs, too numerous to count RBCs. RADIOLOGY: No imaging was done. IMPRESSION AND PLAN: This is an unfortunate 71-year-old male with history of multiple cerebrovascula r accidents. Urologically, the patient appears to be emptying adequately. Machado catheter was appare ntly placed because of incontinence and is currently being managed with a [place] catheter, which is wo rking well. Given his history, I was able to pass the 18-[place] silicone Machado catheter that the manisha mk had brought. There was no obstruction; however, was complicated by positioning patient properly and his phimotic foreskin. A Machado catheter is in place. Approximately 200 mL of cloudy yellow urin e was drained. The plan will be to maintain the Machado catheter. The patient is to receive antibioti cs and local wound care for his decubital ulcers. He can be discharged when medically stable, he tez uld continue with Machado catheter changes by VNS. However, patient can also likely be managed with a [place] catheter as it appears that he is able to void adequately. Talon Stephens MD cc: [phone] TT: 01/01/2017 17:38:30 Confirmation # [id number] Dictation # [id number] ania
[2017-01-03 08:30] LABS: ALB/GLOB RATIO 0.6 (1.1-1.8); ALKALINE PHOSPHATASE 179 U/L (38-133); ALT/SGPT 46 U/L (7-56); AST/SGOT 51 U/L (15-59); BILIRUBIN,TOTAL 0.2 mg/dL (0.2-1.3); BLOOD UREA NITROGEN 15 mg/dL (7-21); CALCIUM 9.1 mg/dL (8.4-10.5); CARBON DIOXIDE 23 mmol/L (21-33); CHLORIDE 109 mmol/L (95-110); GFR AFRICAN-AMERICAN > 60; GLUCOSE,RANDOM 79 mg/dL (70-110); POTASSIUM 4.2 mmol/L (3.6-5.0); SODIUM 140 mmol/L (132-148); TOTAL PROTEIN 8.1 g/dL (5.8-8.3)
--- NOTE | 2017-01-03 08:31 | RAD ---
HISTORY: r/o pneumo COMPARISON: 01/01/2017 FINDINGS: LUNGS: Minimal opacity right infrahilar region at right base, nonspecific. Followup advised. No other opacity elsewhere. PLEURA: No significant pleural effusion identified, no pneumothorax apparent. CARDIOVASCULAR: Oblique positioning. Prominent right hilum due to obliquity. No evidence lymphadenopathy. Normal heart size. OSSEOUS STRUCTURES: No significant abnormalities. VISUALIZED UPPER ABDOMEN: Normal. OTHER FINDINGS: None. IMPRESSION: Minimal right infrahilar basilar opacity common nonspecific. Followup advised.
--- NOTE | 2017-01-03 08:42 | PN ---
DATE: 01/03/2017 I saw the patient resting comfortably in bed. He is contracted. He is looking at me. His eyes are open. He is nonverbal. He is getting IVs, fluids and medicines. He has multiple skin ulcers. The Machado catheter was placed and it is draining clear. He has an old CVA, diabetes, hypertension, demen tia, decubitus ulcers of the hip and the feet and the heel. He has a colostomy. He has a PEG tube. He has a Machado catheter now in place. He is nonverbal, but is at his baseline. PHYSICAL EXAMINATION: VITAL SIGNS: 98.8 temp, 88 pulse, 121/71 blood pressure, 20 respiratory rate, 97% O2 sat on room air . HEENT: Head is atraumatic, normocephalic. Eyes are moving, looking at me. Mouth is open, moist. HEART: Regular rate. LUNGS: Decreased breath sounds with poor inspiration, but clear. ABDOMEN: Soft. Positive colostomy. Positive PEG tube. He has a Machado catheter in place. EXTREMITIES: Contracted. SKIN: He has multiple ulcers on his buttocks and heels. He is being seen by surgery and infectious disease. He is currently on Aricept, folic acid, Keppra, Lopressor, Merrem IV, multivitamin, Protonix, IV flui ds, vancomycin IV and Xalatan eyedrops. When I get the okay from infectious disease to change him to tablets, I can then discharge him. LABORATORY DATA: He had a 7.6 white count, 9.1 hemoglobin, 28.2 hematocrit with 421 platelets. Sodi um 139, potassium 4.5, BUN 18, creatinine 0.8, GFR is greater than 60, sugar is 88, calcium is 9. To fadia bili is 0.2, AST is 55, ALT is 59, alkaline phosphatase 175, total protein is 8.1. His procalcit onin was very high at 10.58. His urine was large blood when he came in with moderate bacteria. I do believe he is improving with the antibiotics. Will check his labs tomorrow as per infectious di jabier. Maykel Betts DO cc: [id number] TT: 01/03/2017 08:41:58 Confirmation # [id number] Dictation # [id number] mn
[2017-01-03] MEDS: Multi Vitamins 15 mL UD Oral Solution PO SCH (09:59)
[2017-01-03] MEDS: levETIRAcetam 500 mg/5ml UD cups PO SCH ×2 (10:00→17:17)
[2017-01-03] MEDS: Pantoprazole 40 mg Susp UD PO SCH (10:00)
--- NOTE | 2017-01-03 11:22 | CP.PCM.PN ---
<Tawana Poe - Last Filed: 01/03/17 12:12> Subjective - Date & Time of Evaluation Date of Evaluation: 01/03/17 Time of Evaluation: 11:19 - Subjective Subjective: Gastroenterology Fellow/PGY4 Progress Note Patient is nonverbal with history of advanced dementia. Moves arms to touch. Nursing denies acute events overnight. A 12-point review of systems unable to be completed with history of advanced dementia. Objective - Vital Signs/Intake and Output Vital Signs (last 24 hours): Temp Pulse Resp BP Pulse Ox 98.8 F 88 20 121/71 97 01/03/17 07:30 01/03/17 09:59 01/03/17 07:30 01/03/17 09:59 01/03/17 07:30 Intake and Output: 01/03/17 01/03/17 06:59 18:59 Intake Total 0 Output Total 850 Balance -850 - Medications Medications: Current Medications Donepezil HCl (Aricept) 10 mg PO HS [facility] Last Admin: 01/02/17 21:08 Dose: 10 mg Folic Acid (Folic Acid) 1 mg PO DAILY [facility] Last Admin: 01/03/17 09:59 Dose: 1 mg Sodium Chloride (Sodium Chloride 0.45%) 1,000 mls @ 40 mls/hr IV .Q24H [facility] Last Admin: 01/02/17 15:15 Dose: Not Given Vancomycin HCl (Vancomycin 1gm) 250 mls @ 167 mls/hr IVPB Q12H [facility] PRN Reason: Protocol Last Admin: 01/03/17 03:50 Dose: 167 mls/hr Meropenem 1g/NS 100mL IVPB (Meropenem 1g/Ns 100ml Ivpb) 100 mls @ 100 mls/hr IVPB Q8 [facility] PRN Reason: Protocol Stop: 01/09/17 14:01 Last Admin: 01/03/17 05:52 Dose: 100 mls/hr Latanoprost (Xalatan Opht) 1 ml OD HS [facility] Last Admin: 01/02/17 21:09 Dose: 1 ml Levetiracetam (Keppra) 500 mg PO BID [facility] Last Admin: 01/03/17 10:00 Dose: 500 mg Metoprolol Tartrate (Lopressor) 25 mg PO BID [facility] Last Admin: 01/03/17 09:59 Dose: 25 mg Multivitamins/Vitamin C (Multi-Delyn Liquid) 15 ml PO DAILY [facility] Last Admin: 01/03/17 09:59 Dose: 15 ml Pantoprazole Sodium (Protonix Susp) 40 mg PO DAILY [facility] Last Admin: 01/03/17 10:00 Dose: 40 mg - Labs Labs: 01/03/17 07:30 01/03/17 07:30 - Constitutional Appears: Non-toxic, Cachectic, Other - Head Exam Head Exam: ATRAUMATIC, NORMOCEPHALIC - Eye Exam Eye Exam: PERRL Pupil Exam: PERRL. absent: Miosis, Mydriatic - ENT Exam ENT Exam: Mucous Membranes Moist, Normal Oropharynx - Neck Exam Neck Exam: Normal Inspection - Respiratory Exam Respiratory Exam: Clear to Ausculation Bilateral. absent: Rales, Rhonchi, Wheezes - Cardiovascular Exam Cardiovascular Exam: RRR, +S1, +S2. absent: Gallop, Rubs - GI/Abdominal Exam GI & Abdominal Exam: Soft, Normal Bowel Sounds. absent: Distended, Firm, Guarding, Rigid, Tenderness, Mass, Organomegaly, Rebound Additional comments: LLQ diverting colostomy with pink stoma and liquid yellow-green stool - Extremities Exam Extremities Exam: absent: Pedal Edema Additional comments: chronic flexion contractures - Neurological Exam Neurological Exam: Awake - Psychiatric Exam Additional comments: unable to assess with advanced dementia - Skin Skin Exam: Dry, Normal Color, Warm Additional comments: multiple pressure ulcers of B/L LE and sacral decubitus ulcers Assessment and Plan - Assessment and Plan (Free Text) Assessment: 71 year old male with history of multiple CVAs, nonverbal in setting of advanced dementia, bedridden with stage IV sacral and heel ulcers s/p diverting colostomy, Diabetes, and Hypetension presenting with hematuria. Active treatment of sepsis secondary to UTI and GI consultation for elevated LFTs. Hepatitis panel negative August 2016. Plan: >cholestasis of sepsis >LFTs improving >abdominal US- no acute findings >avoid hepatotoxic medications >wound cultures-GNR >continue with tube feeding >aspiration precautions, HOB elevated 30 degrees >thank you for opportunity to participate in the care of this patient <Alexi Britton - Last Filed: 01/03/17 12:17> Subjective - Date & Time of Evaluation Date of Evaluation: 01/03/17 Time of Evaluation: 12:14 Objective - Vital Signs/Intake and Output Vital Signs (last 24 hours): Temp Pulse Resp BP Pulse Ox 98.8 F 88 20 121/71 97 01/03/17 07:30 01/03/17 09:59 01/03/17 07:30 01/03/17 09:59 01/03/17 07:30 Intake and Output: 01/03/17 01/03/17 06:59 18:59 Intake Total 0 Output Total 850 Balance -850 - Medications Medications: Current Medications Donepezil HCl (Aricept) 10 mg PO HS [facility] Last Admin: 01/02/17 21:08 Dose: 10 mg Folic Acid (Folic Acid) 1 mg PO DAILY [facility] Last Admin: 01/03/17 09:59 Dose: 1 mg Sodium Chloride (Sodium Chloride 0.45%) 1,000 mls @ 40 mls/hr IV .Q24H [facility] Last Admin: 01/02/17 15:15 Dose: Not Given Vancomycin HCl (Vancomycin 1gm) 250 mls @ 167 mls/hr IVPB Q12H [facility] PRN Reason: Protocol Last Admin: 01/03/17 03:50 Dose: 167 mls/hr Meropenem 1g/NS 100mL IVPB (Meropenem 1g/Ns 100ml Ivpb) 100 mls @ 100 mls/hr IVPB Q8 [facility] PRN Reason: Protocol Stop: 01/09/17 14:01 Last Admin: 01/03/17 05:52 Dose: 100 mls/hr Latanoprost (Xalatan Opht) 1 ml OD HS [facility] Last Admin: 01/02/17 21:09 Dose: 1 ml Levetiracetam (Keppra) 500 mg PO BID [facility] Last Admin: 01/03/17 10:00 Dose: 500 mg Metoprolol Tartrate (Lopressor) 25 mg PO BID [facility] Last Admin: 01/03/17 09:59 Dose: 25 mg Multivitamins/Vitamin C (Multi-Delyn Liquid) 15 ml PO DAILY [facility] Last Admin: 01/03/17 09:59 Dose: 15 ml Pantoprazole Sodium (Protonix Susp) 40 mg PO DAILY [facility] Last Admin: 01/03/17 10:00 Dose: 40 mg - Labs Labs: 01/03/17 07:30 01/03/17 07:30 Attending/Attestation - Attestation I have personally seen and examined this patient.: Yes I have fully participated in the care of the patient.: Yes I have reviewed all pertinent clinical information, including history, physical exam and plan: Yes Notes (Text): 01/03/17 12:14 71 year old male with history of CVAs, dementia, stage IV sacral decubitus and heel ulcers, s/p diverting colostomy, DM, and HTN a/w UTI/Sepsis, also with mild elevation of lfts. 1. Elevated LFTs Plan: -LFts are improved -viral serologies negative in the past -US unremarkable -alk phos could also be non-biliary origin, could be related to chronic decubitus ulcers if there is a bone involvement or other bony disease -continue supportive care -will sign off at this time
--- NOTE | 2017-01-03 12:29 | CP.PCM.PN ---
Subjective - Date & Time of Evaluation Date of Evaluation: 01/03/17 Time of Evaluation: 12:26 - Subjective Subjective: Surgery: Dr. Carney Pt seen and examined. Per nursing no acute events overnight. The pt is non- verbal. Objective - Vital Signs/Intake and Output Vital Signs (last 24 hours): Temp Pulse Resp BP Pulse Ox 98.8 F 88 20 121/71 97 01/03/17 07:30 01/03/17 09:59 01/03/17 07:30 01/03/17 09:59 01/03/17 07:30 Intake and Output: 01/03/17 01/03/17 06:59 18:59 Intake Total 0 Output Total 850 Balance -850 - Medications Medications: Current Medications Donepezil HCl (Aricept) 10 mg PO HS [facility] Last Admin: 01/02/17 21:08 Dose: 10 mg Folic Acid (Folic Acid) 1 mg PO DAILY [facility] Last Admin: 01/03/17 09:59 Dose: 1 mg Sodium Chloride (Sodium Chloride 0.45%) 1,000 mls @ 40 mls/hr IV .Q24H [facility] Last Admin: 01/02/17 15:15 Dose: Not Given Vancomycin HCl (Vancomycin 1gm) 250 mls @ 167 mls/hr IVPB Q12H [facility] PRN Reason: Protocol Last Admin: 01/03/17 03:50 Dose: 167 mls/hr Meropenem 1g/NS 100mL IVPB (Meropenem 1g/Ns 100ml Ivpb) 100 mls @ 100 mls/hr IVPB Q8 [facility] PRN Reason: Protocol Stop: 01/09/17 14:01 Last Admin: 01/03/17 05:52 Dose: 100 mls/hr Latanoprost (Xalatan Opht) 1 ml OD HS [facility] Last Admin: 01/02/17 21:09 Dose: 1 ml Levetiracetam (Keppra) 500 mg PO BID [facility] Last Admin: 01/03/17 10:00 Dose: 500 mg Metoprolol Tartrate (Lopressor) 25 mg PO BID [facility] Last Admin: 01/03/17 09:59 Dose: 25 mg Multivitamins/Vitamin C (Multi-Delyn Liquid) 15 ml PO DAILY [facility] Last Admin: 01/03/17 09:59 Dose: 15 ml Pantoprazole Sodium (Protonix Susp) 40 mg PO DAILY [facility] Last Admin: 01/03/17 10:00 Dose: 40 mg - Labs Labs: 01/03/17 07:30 01/03/17 07:30 - Constitutional Appears: Older Than Stated Age, Cachectic, Chronically Ill - Head Exam Head Exam: ATRAUMATIC, NORMOCEPHALIC - Eye Exam Eye Exam: EOMI - ENT Exam ENT Exam: Mucous Membranes Dry - Respiratory Exam Respiratory Exam: NORMAL BREATHING PATTERN. absent: Accessory Muscle Use, Respiratory Distress - GI/Abdominal Exam GI & Abdominal Exam: Soft. absent: Distended, Firm, Guarding, Rigid, Tenderness - Extremities Exam Additional comments: R ishial decubitus: Stage IV. Foul smelling L ishial decubitus: Stage II Sacral Decubitus: Stage II Stage 1 ulcer on dorsal/medial aspect of R foot. - Neurological Exam Neurological Exam: Awake. absent: Alert, Oriented x3 Assessment and Plan - Assessment and Plan (Free Text) Assessment: 71M w. decubitus ulcers on L and R hip, sacrum, and R foot -Daily dressing changes w. alginate on R hip -Daily dressings changes w. duoderm to remaining ulcers -air mattress -reposition q2h -abx per ID -LFTs trending down, per GI monitor clinically -d/w attending Zemaitis PGY2
[2017-01-03] MEDS: Sodium Chloride 0.45% 1,000 ML IV SCH (17:19)
--- NOTE | 2017-01-03 18:52 | PN ---
DATE: 01/03/2017 The patient is seen in his hospital room. Condition is unchanged. PHYSICAL EXAMINATION: VITAL SIGNS: He is afebrile, temperature 97.9, pulse 84, BP 107/69, respirations 20. ABDOMEN: The Machado catheter is in place. It is draining clear-colored urine. His abdomen is soft. There is no apparent tenderness or guarding. IMPRESSION AND PLAN: The patient with chronic incontinence from limited mobility. Machado catheter sh ould be left indwelling given his bedbound status and to keep urine off of his decubital ulcers. The patient can resume Machado changes by VNS after discharge. No acute urologic intervention necessary a t this time. We will sign off for now. Please reconsult us if needed. Talon Stephens MD cc: [id number] TT: 01/03/2017 18:51:05 Confirmation # [id number] Dictation # [id number] [id number]
--- NOTE | 2017-01-03 22:30 | CP.PCM.PN ---
Subjective - Date & Time of Evaluation Date of Evaluation: 01/03/17 Time of Evaluation: 12:45 - Subjective Subjective: Comfortable in bed, not in distress, afebrile overnight. Objective - Vital Signs/Intake and Output Vital Signs (last 24 hours): Temp Pulse Resp BP Pulse Ox 97.9 F 84 20 107/69 96 01/03/17 16:00 01/03/17 17:15 01/03/17 16:00 01/03/17 17:15 01/03/17 16:00 Intake and Output: 01/03/17 01/04/17 18:59 06:59 Intake Total 0 Output Total 500 525 Balance -500 -525 - Medications Medications: Current Medications Donepezil HCl (Aricept) 10 mg PO HS [facility] Last Admin: 01/02/17 21:08 Dose: 10 mg Folic Acid (Folic Acid) 1 mg PO DAILY [facility] Last Admin: 01/03/17 09:59 Dose: 1 mg Sodium Chloride (Sodium Chloride 0.45%) 1,000 mls @ 40 mls/hr IV .Q24H [facility] Last Admin: 01/03/17 17:19 Dose: 40 mls/hr Vancomycin HCl (Vancomycin 1gm) 250 mls @ 167 mls/hr IVPB Q12H [facility] PRN Reason: Protocol Last Admin: 01/03/17 15:07 Dose: 167 mls/hr Meropenem 1g/NS 100mL IVPB (Meropenem 1g/Ns 100ml Ivpb) 100 mls @ 100 mls/hr IVPB Q8 [facility] PRN Reason: Protocol Stop: 01/09/17 14:01 Last Admin: 01/03/17 14:22 Dose: 100 mls/hr Latanoprost (Xalatan Opht) 1 ml OD HS [facility] Last Admin: 01/02/17 21:09 Dose: 1 ml Levetiracetam (Keppra) 500 mg PO BID [facility] Last Admin: 01/03/17 17:17 Dose: 500 mg Metoprolol Tartrate (Lopressor) 25 mg PO BID [facility] Last Admin: 01/03/17 17:15 Dose: 25 mg Multivitamins/Vitamin C (Multi-Delyn Liquid) 15 ml PO DAILY [facility] Last Admin: 01/03/17 09:59 Dose: 15 ml Pantoprazole Sodium (Protonix Susp) 40 mg PO DAILY [facility] Last Admin: 01/03/17 10:00 Dose: 40 mg - Labs Labs: 01/03/17 07:30 01/03/17 07:30 - Constitutional Appears: Non-toxic, No Acute Distress - Head Exam Head Exam: NORMAL INSPECTION - Respiratory Exam Respiratory Exam: Decreased Breath Sounds - Cardiovascular Exam Cardiovascular Exam: +S1 - GI/Abdominal Exam GI & Abdominal Exam: Soft. absent: Tenderness - Extremities Exam Additional comments: decubitus ulcers with dressings in place Assessment and Plan - Assessment and Plan (Free Text) Plan: Assessment consider infected decubitus ulcers of the right and left hip areas (right hip is stage 4) history of UTI with Pseudomonas history of C diff associated diarrhea CVA DM HTN dementia decubitus ulcer of the hip area Plan continue Vancomycin and meropenem day 2 pending final wound and blood cx results ; should plan 4 weeks of antibiotics for the stage 4 ulcer especially if no debridement is done will monitor clinically
[2017-01-03] MEDS: Latanoprost 2.5 ml Opht Soln OD SCH (23:08)
[2017-01-04] MEDS: Vancomycin 1gm in NS 250ml 250 ML IVPB SCH ×2 (02:30→19:19)
[2017-01-04 07:30] LABS: HEMATOCRIT 27.9 % (42.0-52.0); MEAN CELL VOLUME 80.6 fL (80.0-105.0); MEAN CORPUSCULAR HGB CONC 32.3 g/dl (31.0-37.0); MEAN PLATELET VOLUME 9.1 fl (7.0-11.0); RED CELL DISTRIBUTION WIDTH 16.5 % (11.5-14.5); WHITE BLOOD COUNT 6.6 10^3/ul (4.5-11.0)
[2017-01-04 08:02] LABS: ALB/GLOB RATIO 0.6 (1.1-1.8); ALKALINE PHOSPHATASE 168 U/L (38-133); ALT/SGPT 39 U/L (7-56); AST/SGOT 36 U/L (15-59); BILIRUBIN,TOTAL 0.2 mg/dL (0.2-1.3); BLOOD UREA NITROGEN 11 mg/dL (7-21); CARBON DIOXIDE 22 mmol/L (21-33); CHLORIDE 109 mmol/L (95-110); GFR AFRICAN-AMERICAN > 60; GLUCOSE,RANDOM 76 mg/dL (70-110); SODIUM 140 mmol/L (132-148); TOTAL PROTEIN 7.9 g/dL (5.8-8.3)
--- NOTE | 2017-01-04 08:08 | PN ---
DATE: 01/03/2017 The patient is seen - multiple decubiti ulcers, which are pretty stable from last admission. Orders are written. In addition, the patient needs an air mattress. Aime Carney MD cc: [id number] TT: 01/03/2017 11:45:17 Confirmation # [id number] Dictation # [id number]
--- NOTE | 2017-01-04 09:56 | PN ---
DATE: 01/04/2017 He is resting comfortably in bed. His eyes are open. he looks in no acute distress. That is his ba seline. His eyes are open. PHYSICAL EXAMINATION: VITAL SIGNS: 98.7 temp, 90 pulse, 120/68 blood pressure, 20 respiratory rate, 96% O2 sat on room air . HEENT: His head is atraumatic, normocephalic. Throat is dry. HEART: Regular rate. LUNGS: Decreased breath sounds, but clear. ABDOMEN: Soft. He has got a colostomy. He has got a PEG tube. He has got a Machado catheter. EXTREMITIES: His all 4 extremities are contracted with ulcers to the sacrum and heels. MEDICATIONS: He is currently on Aricept, folic acid, Keppra, Lopressor, Merrem IV, multivitamin, Pro tonix, IV fluids, vancomycin IV, Xalatan. LABORATORY DATA: He has a 140 sodium, potassium 4.0, BUN is 11, creatinine 0.7, GFR is greater than 60, sugar is 74, calcium is 9, total bili is 0.2, AST is 36, ALT is 39, alk phos 168, total protein 7 .9, white count 6.6, hemoglobin 9, hematocrit 27.9, platelets of 414. He is being seen by surgery and urology and gastroenterology and infectious disease states will need vancomycin, Merrem, 4 weeks of antibiotics. We have to make a decision if we are doing it at home wi th IV with home visiting nurses which is what the wants versus a subacute rehab which she does n ot want. I will work with case management to help her solve this problem. He will need a PICC line. The patient is septic and sacral ulcers. Maykel Betts DO cc: [id number] TT: 01/04/2017 09:55:26 Confirmation # [id number] Dictation # [id number]
[2017-01-04] MEDS: Multi Vitamins 15 mL UD Oral Solution PO SCH (10:18)
[2017-01-04] MEDS: Pantoprazole 40 mg Susp UD PO SCH (10:18)
[2017-01-04] MEDS: levETIRAcetam 500 mg/5ml UD cups PO SCH ×2 (10:20→17:49)
--- NOTE | 2017-01-04 11:24 | PN ---
DATE: 01/04/2017 The patient is seen on the floor. His decubitus are well managed. Will follow up peripherally. Aime Carney MD cc: [phone] TT: 01/04/2017 11:23:39 Confirmation # [id number] Dictation # [id number]
--- NOTE | 2017-01-04 12:51 | CP.PCM.PN ---
Subjective - Date & Time of Evaluation Date of Evaluation: 01/04/17 Time of Evaluation: 09:15 - Subjective Subjective: Patient seen and examined at bedside. No acute events overnight. He remains afebrile. Objective - Vital Signs/Intake and Output Vital Signs (last 24 hours): Temp Pulse Resp BP Pulse Ox 98.7 F 90 20 128/68 96 01/04/17 08:00 01/04/17 08:00 01/04/17 08:00 01/04/17 08:00 01/04/17 08:00 Intake and Output: 01/04/17 01/04/17 06:59 18:59 Intake Total 0 Output Total 925 Balance -925 - Medications Medications: Current Medications Donepezil HCl (Aricept) 10 mg PO HS [facility] Last Admin: 01/03/17 23:08 Dose: 10 mg Folic Acid (Folic Acid) 1 mg PO DAILY [facility] Last Admin: 01/04/17 10:18 Dose: 1 mg Sodium Chloride (Sodium Chloride 0.45%) 1,000 mls @ 40 mls/hr IV .Q24H [facility] Last Admin: 01/03/17 17:19 Dose: 40 mls/hr Vancomycin HCl (Vancomycin 1gm) 250 mls @ 167 mls/hr IVPB Q12H [facility] PRN Reason: Protocol Last Admin: 01/04/17 02:30 Dose: 167 mls/hr Meropenem 1g/NS 100mL IVPB (Meropenem 1g/Ns 100ml Ivpb) 100 mls @ 100 mls/hr IVPB Q8 [facility] PRN Reason: Protocol Stop: 01/09/17 14:01 Last Admin: 01/03/17 23:08 Dose: 100 mls/hr Latanoprost (Xalatan Opht) 1 ml OD HS [facility] Last Admin: 01/03/17 23:08 Dose: 1 ml Levetiracetam (Keppra) 500 mg PO BID [facility] Last Admin: 01/04/17 10:20 Dose: 500 mg Metoprolol Tartrate (Lopressor) 25 mg PO BID [facility] Last Admin: 01/04/17 10:19 Dose: 25 mg Multivitamins/Vitamin C (Multi-Delyn Liquid) 15 ml PO DAILY [facility] Last Admin: 01/04/17 10:18 Dose: 15 ml Pantoprazole Sodium (Protonix Susp) 40 mg PO DAILY [facility] Last Admin: 01/04/17 10:18 Dose: 40 mg - Labs Labs: 01/04/17 07:20 01/04/17 07:20 - Constitutional Appears: Non-toxic - Head Exam Head Exam: ATRAUMATIC, NORMOCEPHALIC - Eye Exam Eye Exam: PERRL - ENT Exam ENT Exam: Mucous Membranes Dry - Neck Exam Neck Exam: Normal Inspection - Respiratory Exam Respiratory Exam: Clear to Ausculation Bilateral. absent: Rales, Rhonchi, Wheezes - Cardiovascular Exam Cardiovascular Exam: REGULAR RHYTHM, +S1, +S2 - GI/Abdominal Exam GI & Abdominal Exam: Soft, Normal Bowel Sounds - Extremities Exam Extremities Exam: absent: Pedal Edema - Neurological Exam Neurological Exam: Alert Additional comments: patient is non-verbal - Skin Skin Exam: Warm Additional comments: decubitous ulcer right and left hip as well as sacrum and right foot Assessment and Plan - Assessment and Plan (Free Text) Assessment: 71 male with decubitus ulcers to the left and right hip, sacrum and right foot. -continue daily alginate with dressing changes to right hip ulcer. daily dressing changes with duoderm to left hip, right foot and sacral ulcers - air mattress with frequent position changes - continue abx per ID - chronic ulcerations are clinically stable. will continue to follow peripherally.
[2017-01-04] MEDS ORDERED: Lidocaine 2% Inj (20ml) ONE (14:29)
--- NOTE | 2017-01-04 16:53 | VASCULAR ---
PROCEDURE: Ultrasound and fluoroscopically placed PICC line. HISTORY: Sacral decubitus ulcer. Long-term IV antibiotics. Needs PICC line PHYSICIAN(S): Sushil Kurtz MD. TECHNIQUE: The relative risks and indications of the procedure explained the patient's family consent obtained. Patient placed supine on the arteriogram table in a right arm prepped and draped usual sterile fashion. A tourniquet was applied to the right axilla. Under direct ultrasound guidance, right brachial vein was punctured above the elbow. 0.018 guidewires at was advanced centrally and used to measure the length to the SVC/RA junction. A 5 Uzbek single lumen PICC line, 40 cm long was advanced with its tip at the SVC/RA junction. The catheter was flushed and secured. The patient tolerated the procedure well. FINDINGS: . IMPRESSION: Ultrasound fluoroscopically placed right upper extremity PICC line
[2017-01-04] MEDS: Meropenem 1g/NS 100mL IVPB 100 ML IVPB SCH ×2 (17:52→23:04)
--- NOTE | 2017-01-04 21:16 | CP.PCM.PN ---
Subjective - Date & Time of Evaluation Date of Evaluation: 01/04/17 Time of Evaluation: 11:55 - Subjective Subjective: Comfortable in bed, not in distress, afebrile. Objective - Vital Signs/Intake and Output Vital Signs (last 24 hours): Temp Pulse Resp BP Pulse Ox 97.7 F 83 18 140/70 100 01/04/17 16:00 01/04/17 17:47 01/04/17 16:00 01/04/17 17:47 01/04/17 16:00 Intake and Output: 01/04/17 01/05/17 18:59 06:59 Intake Total 0 Output Total 1000 Balance -1000 - Medications Medications: Current Medications Donepezil HCl (Aricept) 10 mg PO HS [facility] Last Admin: 01/03/17 23:08 Dose: 10 mg Folic Acid (Folic Acid) 1 mg PO DAILY [facility] Last Admin: 01/04/17 10:18 Dose: 1 mg Sodium Chloride (Sodium Chloride 0.45%) 1,000 mls @ 40 mls/hr IV .Q24H [facility] Last Admin: 01/03/17 17:19 Dose: 40 mls/hr Meropenem 1g/NS 100mL IVPB (Meropenem 1g/Ns 100ml Ivpb) 100 mls @ 100 mls/hr IVPB Q8 [facility] PRN Reason: Protocol Stop: 01/09/17 14:01 Last Admin: 01/04/17 17:52 Dose: 100 mls/hr Latanoprost (Xalatan Opht) 1 ml OD HS [facility] Last Admin: 01/03/17 23:08 Dose: 1 ml Levetiracetam (Keppra) 500 mg PO BID [facility] Last Admin: 01/04/17 17:49 Dose: 500 mg Metoprolol Tartrate (Lopressor) 25 mg PO BID [facility] Last Admin: 01/04/17 17:47 Dose: 25 mg Multivitamins/Vitamin C (Multi-Delyn Liquid) 15 ml PO DAILY [facility] Last Admin: 01/04/17 10:18 Dose: 15 ml Pantoprazole Sodium (Protonix Susp) 40 mg PO DAILY [facility] Last Admin: 01/04/17 10:18 Dose: 40 mg - Labs Labs: 01/04/17 07:20 01/04/17 07:20 - Constitutional Appears: Non-toxic, No Acute Distress - Head Exam Head Exam: NORMAL INSPECTION - Neck Exam Neck Exam: absent: Lymphadenopathy, Meningismus - Respiratory Exam Respiratory Exam: Decreased Breath Sounds - Cardiovascular Exam Cardiovascular Exam: +S1, +S2 - GI/Abdominal Exam GI & Abdominal Exam: Soft. absent: Tenderness Additional comments: colostomy in place - Extremities Exam Additional comments: bilateral hip ulcers with dressings in place Assessment and Plan - Assessment and Plan (Free Text) Plan: Assessment consider infected decubitus ulcers of the right and left hip areas (right hip is stage 4), growing ESBL-producing Klebsiella and PRoteus history of UTI with Pseudomonas history of C diff associated diarrhea CVA DM HTN dementia decubitus ulcer of the hip area Plan continue meropenem day 3 pending final wound and blood cx results; should plan 4 weeks of antibiotics for the stage 4 ulcer especially if no debridement is done will monitor clinically
[2017-01-04] MEDS: Latanoprost 2.5 ml Opht Soln OD SCH (23:04)
[2017-01-05] MEDS: Meropenem 1g/NS 100mL IVPB 100 ML IVPB SCH ×2 (05:18→13:49)
[2017-01-05 06:56] LABS: ALB/GLOB RATIO 0.6 (1.1-1.8); ALKALINE PHOSPHATASE 160 U/L (38-133); ALT/SGPT 38 U/L (7-56); AST/SGOT 42 U/L (15-59); BILIRUBIN,TOTAL 0.4 mg/dL (0.2-1.3); BLOOD UREA NITROGEN 10 mg/dL (7-21); CALCIUM 9.1 mg/dL (8.4-10.5); CARBON DIOXIDE 25 mmol/L (21-33); CHLORIDE 108 mmol/L (98-107); GFR AFRICAN-AMERICAN > 60; GLUCOSE,RANDOM 75 mg/dL (70-110); POTASSIUM 3.7 mmol/L (3.6-5.0); SODIUM 141 mmol/L (132-148); TOTAL PROTEIN 7.9 g/dL (5.8-8.3)
[2017-01-05 07:20] LABS: HEMATOCRIT 27.8 % (42.0-52.0); MEAN CELL VOLUME 80.3 fL (80.0-105.0); MEAN CORPUSCULAR HEMOGLOBIN 26.3 pg (25.0-35.0); MEAN CORPUSCULAR HGB CONC 32.7 g/dl (31.0-37.0); MEAN PLATELET VOLUME 9.1 fl (7.0-11.0); RED CELL DISTRIBUTION WIDTH 16.3 % (11.5-14.5); WHITE BLOOD COUNT 6.4 10^3/ul (4.5-11.0)
[2017-01-05 08:49] VITALS: RESP 20; TEMP 98.6; O2SAT 97
--- NOTE | 2017-01-05 09:48 | CP.PCM.PN ---
Subjective - Date & Time of Evaluation Date of Evaluation: 01/05/17 Time of Evaluation: 09:00 - Subjective Subjective: Patient seen and evaluated at bedside. No acute events overnight. Patient remains afebrile. Wounds cleaned and dressed. Objective - Vital Signs/Intake and Output Vital Signs (last 24 hours): Temp Pulse Resp BP Pulse Ox 98.6 F 72 20 130/64 97 01/05/17 08:48 01/05/17 08:48 01/05/17 08:48 01/05/17 08:48 01/05/17 08:48 Intake and Output: 01/05/17 01/05/17 06:59 18:59 Intake Total 680 Output Total 400 Balance 280 - Medications Medications: Current Medications Donepezil HCl (Aricept) 10 mg PO HS [facility] Last Admin: 01/04/17 23:04 Dose: 10 mg Folic Acid (Folic Acid) 1 mg PO DAILY [facility] Last Admin: 01/04/17 10:18 Dose: 1 mg Sodium Chloride (Sodium Chloride 0.45%) 1,000 mls @ 40 mls/hr IV .Q24H [facility] Last Admin: 01/03/17 17:19 Dose: 40 mls/hr Meropenem 1g/NS 100mL IVPB (Meropenem 1g/Ns 100ml Ivpb) 100 mls @ 100 mls/hr IVPB Q8 [facility] PRN Reason: Protocol Stop: 01/09/17 14:01 Last Admin: 01/05/17 05:18 Dose: 100 mls/hr Latanoprost (Xalatan Opht) 1 ml OD HS [facility] Last Admin: 01/04/17 23:04 Dose: 1 ml Levetiracetam (Keppra) 500 mg PO BID [facility] Last Admin: 01/04/17 17:49 Dose: 500 mg Metoprolol Tartrate (Lopressor) 25 mg PO BID [facility] Last Admin: 01/04/17 17:47 Dose: 25 mg Multivitamins/Vitamin C (Multi-Delyn Liquid) 15 ml PO DAILY [facility] Last Admin: 01/04/17 10:18 Dose: 15 ml Pantoprazole Sodium (Protonix Susp) 40 mg PO DAILY [facility] Last Admin: 01/04/17 10:18 Dose: 40 mg - Labs Labs: 01/05/17 06:30 01/05/17 06:30 - Constitutional Appears: Non-toxic, No Acute Distress - Head Exam Head Exam: ATRAUMATIC, NORMOCEPHALIC - Eye Exam Eye Exam: EOMI - ENT Exam ENT Exam: Mucous Membranes Dry - Neck Exam Neck Exam: Full ROM - Respiratory Exam Respiratory Exam: Clear to Ausculation Bilateral. absent: Rales, Rhonchi, Wheezes - Cardiovascular Exam Cardiovascular Exam: REGULAR RHYTHM, +S1, +S2 - GI/Abdominal Exam GI & Abdominal Exam: Soft. absent: Tenderness, Normal Bowel Sounds - Extremities Exam Extremities Exam: absent: Calf Tenderness, Pedal Edema - Neurological Exam Neurological Exam: Alert, Awake Additional comments: patient is nonverbal - Skin Skin Exam: Normal Color, Warm - Additional Findings Additional findings: decubitous ulceration to sacrum, as well as pressure ulceration right heel. Assessment and Plan - Assessment and Plan (Free Text) Assessment: 71 male with decubitus ulcers to the left and right hip, sacrum and right foot. -continue daily alginate with dressing changes to right hip ulcer. daily dressing changes with duoderm to left hip, right foot and sacral ulcers - air mattress with frequent position changes - continue abx per ID - chronic ulcerations are clinically stable. -will continue to follow peripherally.
[2017-01-05] MEDS: Pantoprazole 40 mg Susp UD PO SCH (10:09)
[2017-01-05] MEDS: Multi Vitamins 15 mL UD Oral Solution PO SCH (10:09)
[2017-01-05] MEDS: levETIRAcetam 500 mg/5ml UD cups PO SCH (10:10)
[2017-01-05 10:21] VITALS: BP 124/70; PULSE 66
--- NOTE | 2017-01-05 12:31 | DS ---
He is resting in bed comfortably. He is alert, eyes are open, no acute distress. He is being seen b y wound care, palliative care, urology, surgery, infectious disease. He is currently on IV fluids, Aricept, folic acid, Keppra, Lopressor, IV Merrem, he will need 4 weeks , multivitamin, Protonix and Xalatan. PHYSICAL EXAMINATION: VITAL SIGNS: Temp 97.7, 83 pulse, 149/75 blood pressure, 18 respiratory rate and 100% O2 sat on room air. HEENT: His head is atraumatic, normocephalic. The throat is moist. NECK: Supple. HEART: Regular rate. LUNGS: Decreased breath sounds, but clear to auscultation. ABDOMEN: Soft. He has a colostomy and a PEG tube. GENITOURINARY: He has a Machado catheter finally in place, draining clear urine, no more blood. EXTREMITIES: All contracted. He has got sacral wounds and heel wounds. He is here for positive urinary cultures. He also was positive for sacral ulcer infection. He will need 4 weeks of IV antibiotics. He will be discharged today to [facility] at [place] for 4 weeks of IV an tibiotics before he goes home. Maykel Betts DO cc: [id number] TT: 01/05/2017 12:31:04 en
== END 2017-01-05 14:25 | DRG 871 ==
LOC: ED 17:36 → ERH 23:04 → 5RSO 01-01 01:41 → OBSVTOIN 01-01 12:20
PROVIDERS: ADMIT Family Medicine; ATTEND Family Medicine
PROC: 0T9B70Z Drainage of Bladder with Drainage Device, Via Natural or Artificial Opening (ICD-10-PCS; principal; 2017-01-01)
PROC: 02HV33Z Insertion of Infusion Device into Superior Vena Cava, Percutaneous Approach (ICD-10-PCS; 2017-01-04)
PROC: B54MZZA Ultrasonography of Right Upper Extremity Veins, Guidance (ICD-10-PCS; 2017-01-04)
DX: A41.9 Sepsis, unspecified organism (principal); L89.214 Pressure ulcer of right hip, stage 4; L89.152 Pressure ulcer of sacral region, stage 2; R64 Cachexia; N39.0 Urinary tract infection, site not specified; G30.9 Alzheimer's disease, unspecified; F02.80 Dementia in other diseases classified elsewhere, unspecified severity, without behavioral disturbance, psychotic disturbance, mood disturbance, and anxiety; R31.9 Hematuria, unspecified; H40.9 Unspecified glaucoma; L89.222 Pressure ulcer of left hip, stage 2; L89.891 Pressure ulcer of other site, stage 1; E11.9 Type 2 diabetes mellitus without complications; N39.498 Other specified urinary incontinence; B96.4 Proteus (mirabilis) (morganii) as the cause of diseases classified elsewhere; B96.1 Klebsiella pneumoniae [K. pneumoniae] as the cause of diseases classified elsewhere; M24.574 Contracture, right foot; I69.398 Other sequelae of cerebral infarction; Z68.23 Body mass index [BMI] 23.0-23.9, adult; Z74.01 Bed confinement status; Z93.1 Gastrostomy status; Z93.3 Colostomy status; Z91.040 Latex allergy status

== ENCOUNTER 2017-04-30 13:40 | Inpatient (IN) | payer MEDICARE, OTHER ==
--- NOTE | 2017-04-30 13:53 | ED PDOC ---
Arrival/HPI - General Time Seen by Provider: 04/30/17 13:41 Historian: Family (Son) - History of Present Illness Narrative History of Present Illness (Text): 04/30/17 13:50 A 71 year old male, whose past medical history includes diabetes, seizure disorder and CVA, was brought into the emergency department by EMS accompanied by son for further evaluation. Son reports patient became more lethargic this today. At [place] he says his father doesn't talk. Today he just looked much more tired than usual which is what he means by lethargic. He notes a cough and episodes of non-bloody diarrhea over the past few days. Patient unable to provider further information. Limited HPI and ROS. PMD: Dr. Betts Time/Duration: Prior to Arrival Symptom Course: Unchanged Quality: Other Context: Home Past Medical History - Provider Review Nursing Documentation Reviewed: Yes - Infectious Disease Hx of Infectious Diseases: MRSA - Tetanus Immunization Tetanus Immunization: Unknown - Cardiac Hx Hypertension: Yes - Pulmonary Hx Respiratory Disorders: No - Neurological Hx Alzheimer's Disease: Yes HX Cerebrovascular Accident: Yes - HEENT Hx HEENT Disorder: Yes (peg tube) Hx Difficulty Chewing: Yes Hx Glaucoma: Yes (LASER SURGERY) - Renal Hx Renal Disorder: Yes - Endocrine/Metabolic Hx Diabetes Mellitus Type 1: Yes - Hematological/Oncological Hx Blood Disorders: No - Integumentary Other/Comment: multiple decubiti ulcers to sacrum and buttocks, b/l heel wounds , 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 - Musculoskeletal/Rheumatological Hx Falls: No - Gastrointestinal Hx Gastrointestinal Disorders: Yes (PEG) Hx Colostomy: Yes Hx Gastroesophageal Reflux: Yes - Genitourinary/Gynecological Hx Genitourinary Disorders: Yes Hx Incontinence: Yes - Psychiatric Hx Emotional Abuse: No Hx Physical Abuse: No Hx Substance Use: No - Past Surgical History Past Surgical History: Unable to Obtain - Surgical History Other/Comment: colostomy, picc in and out - Anesthesia Hx Anesthesia: Yes Hx Anesthesia Reactions: No Hx Malignant Hyperthermia: No - Suicidal Assessment Feels Threatened In Home Enviroment: No Family/Social History - Physician Review Nursing Documentation Reviewed: Yes Family/Social History: No Known Family HX Smoking Status: Never Smoked Hx Alcohol Use: No Hx Substance Use: No Hx Substance Use Treatment: No Allergies/Home Meds Allergies/Adverse Reactions: Allergies Latex, Natural Rubber Adverse Reaction (Verified 12/31/16 17:51) SWELLING Home Medications: Home Meds Medication Instructions Recorded Confirmed Donepezil HCl [Aricept] 10 mg GT DAILY 12/31/16 04/30/17 Metoprolol Tartrate [Lopressor] 25 mg GT BID 12/31/16 04/30/17 Omeprazole 40 mg GT DAILY 12/31/16 04/30/17 Albuterol/Ipratropium [Duoneb 3 3 ml IH PRN PRN 04/30/17 04/30/17 MG/3 Ml-0.5 MG/3 Ml 3 Ml] Docu-Liquid 5 ml GT BID 04/30/17 04/30/17 Folic Acid 1 mg GT DAILY 04/30/17 04/30/17 Glucerna 1.0 237 ml GT 5XD 04/30/17 04/30/17 Multivit-Min/FA/Lycopen/Lutein 1 each GT DAILY 04/30/17 04/30/17 [Centrum Silver Tablet] levETIRAcetam [Keppra] 750 mg GT BID 04/30/17 04/30/17 Review of Systems - Review of Systems Systems not reviewed;Unavailable: Acuity of Condition Physical Exam Vital Signs Reviewed: Yes Vital Signs Temp Pulse Resp BP Pulse Ox 04/30/17 13:40 99.4 F 99 H 20 121/63 100 Temperature: Afebrile Blood Pressure: Normal Pulse: Regular Respiratory Rate: Normal Appearance: Positive for: Non-Toxic, Comfortable, Ill-Appearing Pain Distress: None Mental Status: Positive for: other (Patient is non-verbal) - Systems Exam Head: Present: Atraumatic, Normocephalic Pupils: Present: PERRL Conjunctiva: Present: Normal Mouth: Present: Moist Mucous Membranes Pharnyx: No: ERYTHEMA, EXUDATE, TONSILS ENLARGED Respiratory/Chest: Present: Clear to Auscultation, Good Air Exchange. No: Respiratory Distress, Accessory Muscle Use Cardiovascular: Present: Regular Rate and Rhythm, Normal S1, S2. No: Murmurs Abdomen: Present: Normal Bowel Sounds, Feeding Tubes (PEG tube noted, no erythema or pus), Ostomy Tubes (Colostomy bag noted, with brown stool). No: Tenderness, Distention, Peritoneal Signs Back: Present: Other (Sacral ulcer, see photo mask cleaner) Upper Extremity: Present: Normal ROM (Upper extremities contracted however normal ROM), NORMAL PULSES. No: Cyanosis, Edema Lower Extremity: Present: NORMAL PULSES, Normal ROM (Upper extremities contracted however normal ROM), Other (Ulcers on bilateral heels, see photo mask cleaner). No: Edema, CALF TENDERNESS Neurological: Present: Other (Non-verbal, responses to painful stimuli) Skin: Present: Warm, Dry, Normal Color. No: Rashes Psychiatric: Present: Other (Non-verbal, ) Medical Decision Making ED Course and Treatment: 04/30/17 13:50 Impression: A 71 year old male brought in for evaluation. Son reports patient became more lethargic today. Differential Diagnosis included but are not limited to: Sepsis secondary to UTI vs. Ulcer Plan: -- Chest xray -- EKG -- Labs -- Blood and Urine culture -- Urinalysis -- IV fluids -- Reassess and disposition Progress Notes: EKG shows NSR at [address]-segment elevations, normal intervals, normal axis. Interpreted by me. Report Date : 04/30/2017 14:18:23 Procedure: Chest xray Dictator : Sushil Guthrie MD IMPRESSION: No active disease. 04/30/17 15:21 Vitals stable. Patient treated with broad spectrum antibiotics and IVF. LA normal. WBC Elevated. Case discussed with Dr. Betts who agrees to admission. Will admit to medicine under Dr. Betts for Sepsis. - Lab Interpretations Lab Results: 04/30/17 13:57 04/30/17 13:57 Lab Results 04/30/17 13:57: Sodium 136, Chloride 110 H, Potassium 4.3, Carbon Dioxide 16 L, Anion Gap 14, BUN 34 H, Creatinine 1.2, Est GFR ( Amer) > 60, Est GFR ( Non-Af Amer) 60, Random Glucose 164 H, Calcium 8.8, Phosphorus 3.4, Magnesium 2.9 H, Total Bilirubin 0.3, AST 50, ALT 40, Alkaline Phosphatase 236 H, Troponin I < 0.01, Total Protein 8.7 H, Albumin 3.4, Globulin 5.3, Albumin/ Globulin Ratio 0.6 L 04/30/17 13:57: pO2 47, VBG pH 7.29 L, VBG pCO2 35.0 L, VBG HCO3 16.8 L, VBG Total CO2 17.9 L, VBG O2 Sat (Calc) 86.5 H, VBG Base Excess -8.9 L, VBG Potassium 4.5, Sodium 135.0, Chloride 107.0, Glucose 167 H, Lactate 1.8, FiO2 21.0, Venous Blood Potassium 4.5 04/30/17 13:57: PT 11.4, INR 1.06, APTT 35.9 H 04/30/17 13:57: WBC 14.3 H D, RBC 3.61, Hgb 9.7 L, Hct 29.0 L, MCV 80.3, MCH 26.9, MCHC 33.4, RDW 16.1 H, Plt Count 466 H, MPV 9.0, Gran % 74.3 H, Lymph % ( Auto) 14.9 L, Anson % (Auto) 9.9 H, Eos % (Auto) 0.8 L, Baso % (Auto) 0.1, Gran # 10.63 H, Lymph # 2.1, Anson # 1.4 H, Eos # 0.1, Baso # 0.02 04/30/17 13:50: POC Glucose (mg/dL) 192 H - RAD Interpretation Radiology Orders: 04/30/17 13:54 CHEST PORTABLE [RAD] Stat - Medication Orders Current Medication Orders: Acetaminophen (Tylenol 325 Mg Supp) 650 mg RC PRN PRN PRN Reason: Fever >100.4 F Sodium Chloride (Sodium Chloride 0.9%) 1,000 mls @ 150 mls/hr IV .Q6H40M HENRIQUE Cefepime HCl (Maxipime 2gm) 2 gm in 100 mls @ 100 mls/hr IVPB STAT STA PRN Reason: Protocol Stop: 04/30/17 15:25 Vancomycin HCl (Vancomycin 1gm) 1 gm in 250 mls @ 167 mls/hr IVPB STAT STA PRN Reason: Protocol Stop: 04/30/17 15:55 Sodium Chloride (Sodium Chloride 0.9%) 1,000 mls @ 100 mls/hr IV .Q10H STA Stop: 05/01/17 01:07 Ondansetron HCl (Zofran Inj) 4 mg IVP Q4H PRN PRN Reason: Nausea/Vomiting - Scribe Statement The provider has reviewed the documentation as recorded by the Codie Barrera Provider Scribe Attestation: All medical record entries made by the Scribe were at my direction and personally dictated by me. I have reviewed the chart and agree that the record accurately reflects my personal performance of the history, physical exam, medical decision making, and the department course for this patient. I have also personally directed, reviewed, and agree with the discharge instructions and disposition. Disposition/Present on Arrival - Present on Arrival Any Indicators Present on Arrival: No History of DVT/PE: No History of Uncontrolled Diabetes: No Urinary Catheter: No History Surgical Site Infection Following: None - Disposition Have Diagnosis and Disposition been Completed?: Yes Diagnosis: Sepsis, Ulcer Disposition: HOSPITALIZED Disposition Time: 14:44 Patient Plan: Observation Condition: FAIR
[2017-04-30] MEDS ORDERED: Sodium Chloride 0.9% 1,000 ML IV SCH (14:00)
[2017-04-30 14:01] VITALS: BMI 23.6
[2017-04-30 14:09] LABS: VENOUS BLOOD GAS BASE EXCESS -8.9 mmol/L (0.0-2.0); VENOUS BLOOD PH 7.29 (7.32-7.43)
[2017-04-30 14:14] LABS: BASO # 0.02 K/mm3 (0.0-2.0); BASO % 0.1 % (0.0-3.0); EOS # 0.1 (0.0-0.7); EOS % 0.8 % (1.5-5.0); GRAN # 10.63 (1.4-6.5); GRAN % 74.3 % (50.0-68.0); LYMPH # 2.1 (1.2-3.4); LYMPH % 14.9 % (22.0-35.0); MEAN CELL VOLUME 80.3 fl (80.0-105.0); MEAN CORPUSCULAR HEMOGLOBIN 26.9 pg (25.0-35.0); MEAN CORPUSCULAR HGB CONC 33.4 g/dl (31.0-37.0); MONO # 1.4 (0.1-0.6); MONO % 9.9 % (1.0-6.0); RED CELL DISTRIBUTION WIDTH 16.1 % (11.5-14.5); WHITE BLOOD COUNT 14.3 10^3/ul (4.5-11.0)
[2017-04-30 14:16] LABS: INR 1.06 (0.93-1.08); PARTIAL THROMBOPLASTIN TIME 35.9 Seconds (23.7-30.8)
[2017-04-30 14:19] LABS: ALB/GLOB RATIO 0.6 (1.1-1.8); ALKALINE PHOSPHATASE 236 U/L (38-133); ALT/SGPT 40 U/L (7-56); AST/SGOT 50 U/L (15-59); BILIRUBIN,TOTAL 0.3 mg/dL (0.2-1.3); BLOOD UREA NITROGEN 34 mg/dL (7-21); CALCIUM 8.8 mg/dL (8.4-10.5); CARBON DIOXIDE 16 mmol/L (21-33); CHLORIDE 110 mmol/L (98-107); GFR AFRICAN-AMERICAN > 60; GLUCOSE,RANDOM 164 mg/dL (70-110); MAGNESIUM 2.9 mg/dL (1.7-2.2); PHOSPHOROUS 3.4 mg/dL (2.5-4.5); POTASSIUM 4.3 mmol/L (3.6-5.0); SODIUM 136 mmol/L (132-148); TOTAL PROTEIN 8.7 g/dL (5.8-8.3)
--- NOTE | 2017-04-30 14:19 | RAD ---
HISTORY: Sepsis Patient COMPARISON: 01/02/2017 FINDINGS: LUNGS: No active pulmonary disease. PLEURA: No significant pleural effusion identified, no pneumothorax apparent. CARDIOVASCULAR: Normal. OSSEOUS STRUCTURES: No significant abnormalities. VISUALIZED UPPER ABDOMEN: Normal. OTHER FINDINGS: None. IMPRESSION: No active disease.
[2017-04-30] MEDS ORDERED: Cefepime IV 2 gm in NS 2 GM/100 ML BAG IVPB STA (14:26)
[2017-04-30] MEDS ORDERED: Vancomycin 1gm in NS 250ml 1 GM/250 ML BAG IVPB STA (14:26)
[2017-04-30 14:33] LABS: TROPONIN I < 0.01 ng/mL
[2017-04-30 15:05] LABS: URINE BILIRUBIN NEGATIVE (NEGATIVE); URINE BLOOD LARGE (NEGATIVE); URINE GLUCOSE (UA) NEGATIVE (NEGATIVE); URINE KETONE NEGATIVE (NEGATIVE); URINE LEUKOCYTE ESTERASE LARGE Leu/uL (NEGATIVE); URINE PROTEIN 100 mg/dL (<30 mg/dL); URINE UROBILINOGEN 0.2 E.U./dL (<1 E.U./dL)
[2017-04-30] MEDS ORDERED: Sodium Chloride 0.9% 1,000 ML IV STA (15:08)
[2017-04-30 15:24] LABS: URINE APPEARANCE TURBID (CLEAR); URINE COLOR YELLOW (YELLOW)
[2017-04-30 15:45] LABS: URINE BACTERIA MANY (NEG); URINE EPITHELIAL CELLS 0 - 2 /hpf (0-5); URINE RBC 15 - 20 /hpf (0-2); URINE WBC 25 - 30 /hpf (0-6)
[2017-04-30] MEDS: Sodium Chloride 0.45% 1,000 ML IV SCH (16:34)
[2017-04-30] MEDS: Albuterol-Ipratrop 3 mg / 0.5 (3 ml) UD IH SCH ×2 (16:35→20:43)
[2017-04-30] MEDS: Insulin Reg-HIGH-Coverage SC SCH (16:51)
[2017-04-30] MEDS: GLUCERNA GT SCH (22:15)
[2017-04-30] MEDS: levETIRAcetam 500 mg/5ml UD cups GT SCH (22:16)
[2017-04-30] MEDS: Latanoprost 2.5 ml Opht Soln OD SCH (22:17)
[2017-04-30] MEDS: Cefepime 1gm in NS 100ml 1 GM/100 ML BAG IVPB SCH (22:17)
[2017-05-01] MEDS: Albuterol-Ipratrop 3 mg / 0.5 (3 ml) UD IH SCH (01:35)
--- NOTE | 2017-05-01 04:11 | HP ---
HISTORY OF PRESENT ILLNESS: I know Rima Calire very well from doing house calls on him and also hospital visits. He was brought in today by the son for further evaluation because he seemed more lethargic than usual, with maybe a low-grade temperature. He felt hot at home and maybe a little bit more lethargic. Occasional cough. He has a history of being bedridden from an old CVA. He has diabetes, seizures, and contracted multiple decubitus ulcers. He has been septic before. He has a PEG tube and a Machado. PAST MEDICAL HISTORY: MRSA infection in the past, hypertension, old CVA, Alzheimer's dementia, has a PEG tube. He has glaucoma and had laser surgery. He has difficulty chewing and that is why he got a PEG tube. He has diabetes, renal disorder, and multiple decubitus ulcers to the sacrum, buttocks, and bilateral heels. He has had a PEG insertion. He has a colostomy. He has gastroesophageal reflux, incontinence of urine and stool, PEG, and colostomy. FAMILY HISTORY: There is hypertension in the family. SOCIAL HISTORY: He never smoked alcohol, no drugs. ALLERGIES: LATEX. MEDICATIONS: Aranesp, Lopressor, omeprazole, DuoNeb, Dulcolax liquid, folic acid, Glucerna feedings, multivitamin, and Keppra for seizure history. REVIEW OF SYSTEMS: Cannot do review of systems as he is nonverbal. His eyes are open, he just stares, that is his baseline. His mouth is open. He is bedbound and nonverbal. PHYSICAL EXAMINATION VITAL SIGNS: He has 99.4 temperature, it went up to 101; 99 pulse; 20 respiratory rate; 121/63 blood pressure; 100% O2 saturation on nasal cannula. GENERAL: No apparent distress. HEENT: Head is atraumatic and normocephalic. Eyes are open, just staring. Mouth is in the O-sign position. Dry mucous membranes. Extraocular muscles are intact. HEART: Regular rate. Normal S1 and S2. LUNGS: Decreased breath sounds bilaterally, with fair exchange. ABDOMEN: Soft, nontender. Positive bowel sounds. PEG tube is there. No erythema. He has a colostomy also present, brown stool. EXTREMITIES: He has a sacral ulcer, bilateral heel ulcers. All four extremities are contracted. No apparent edema. NEUROLOGIC: He is nonverbal and his eyes are open and that is his baseline. LABORATORY DATA: We did multiple tests. Chest x-ray was normal. Urine showed large blood, large leukocytes, many bacteria. He has 136 sodium; potassium 4.3; BUN 34 and creatinine 1.2, we put him on IV fluids; GFR is greater than 60; sugar is 164, he will be on coverage; and calcium is 8.8. Phosphorus 3.4, magnesium 2.9. Total bilirubin is 0.3, AST is 50, ALT is 40, alkaline phosphatase is 236. Troponin is less than 0.01. Total protein is 8.7, albumin 3.4, globulin is 5.3. He had a pH of 7.29. INR 1.06. White count 14.3, elevated; 9.7 hemoglobin; 29 hematocrit; and 466 platelets. PLAN: He will have a consult with infectious disease. He will put on IV antibiotics, DuoNeb, Glucerna feedings, Keppra, metoprolol. He may need to have his Machado catheter changed, I will discuss that with infectious disease. We will check his labs tomorrow. I believe he is here for sepsis, sacral ulcer,UTI, and end-stage Alzheimer's disease from an old stroke. Maykel Betts DO cc:
[2017-05-01] MEDS: GLUCERNA GT SCH ×5 (06:18→22:13)
[2017-05-01] MEDS: Insulin Reg-HIGH-Coverage SC SCH ×5 (06:21→22:35)
[2017-05-01 06:54] LABS: HEMATOCRIT 26.6 % (42.0-52.0); MEAN CELL VOLUME 80.4 fl (80.0-105.0); MEAN CORPUSCULAR HGB CONC 32.3 g/dl (31.0-37.0); MEAN PLATELET VOLUME 8.9 fl (7.0-11.0); RED CELL DISTRIBUTION WIDTH 16.3 % (11.5-14.5); WHITE BLOOD COUNT 9.6 10^3/ul (4.5-11.0)
[2017-05-01 07:01] LABS: ALB/GLOB RATIO 0.6 (1.1-1.8); ALKALINE PHOSPHATASE 201 U/L (38-133); ALT/SGPT 30 U/L (7-56); AST/SGOT 41 U/L (15-59); BILIRUBIN,TOTAL 0.4 mg/dL (0.2-1.3); BLOOD UREA NITROGEN 27 mg/dL (7-21); CALCIUM 9.1 mg/dL (8.4-10.5); CARBON DIOXIDE 16 mmol/L (21-33); CHLORIDE 118 mmol/L (98-107); GFR AFRICAN-AMERICAN > 60; GLUCOSE,RANDOM 126 mg/dL (70-110); POTASSIUM 4.1 mmol/L (3.6-5.0); SODIUM 143 mmol/L (132-148); TOTAL PROTEIN 8.2 g/dL (5.8-8.3)
[2017-05-01] MEDS: Pantoprazole 40 mg Susp UD GT SCH (09:30)
[2017-05-01] MEDS: Cefepime 1gm in NS 100ml 1 GM/100 ML BAG IVPB SCH (09:30)
[2017-05-01] MEDS: levETIRAcetam 500 mg/5ml UD cups GT SCH ×2 (09:30→17:32)
--- NOTE | 2017-05-01 11:01 | CARD ---
APPROVED REPORT EKG Measurement Heart [id number] <Conclusion> Poor data quality, interpretation may be adversely affected Normal sinus rhythm Normal ECG
[2017-05-01] MEDS: Vancomycin 1gm in NS 250ml 1 GM/250 ML BAG IVPB SCH ×2 (12:49→22:56)
[2017-05-01] MEDS: Sodium Chloride 0.45% 1,000 ML IV SCH (12:50)
[2017-05-01] MEDS: Meropenem 1g/NS 100mL IVPB 1 GM/100 ML PIGGYBACK IVPB SCH ×2 (14:29→22:12)
--- NOTE | 2017-05-01 15:00 | PN ---
DATE: SUBJECTIVE: Rima is resting comfortably in bed. His eyes are open. He is getting IV fluids and antibiotics transfusing. Infectious disease doctor will be seeing him shortly. He looks about the same as yesterday, but maybe less stressed. He is on Glucerna, insulin, Keppra, Lopressor, Maxipime, Protonix, IV fluids, Tylenol, Xalatan and Zofran. PHYSICAL EXAMINATION: VITAL SIGNS: He has a 98.2 temperature, which is better than when come in, it was high at 101 and 88 pulse, 116/66 blood pressure, 20 respiratory rate, 100% O2 sat on room air. HEENT: Head is atraumatic and normocephalic. His eyes are open. He is looking at me this morning. His mouth has got the O sign at his baseline. Dry membranes. HEART: Regular rate. LUNGS: Decreased breath sounds but clear to auscultation, less congestion than the day before. ABDOMEN: Soft. He has got a PEG tube in place, colostomy. EXTREMITIES: Are all contracted with ulcers on the heels and the sacral area. He has got a Machado catheter in place. LABORATORY DATA: His white count is down to 9.6, hemoglobin 8.6, hematocrit 26.6, platelets are 474. If it drops below 8 the hemoglobin, I will transfuse him. Sodium 143, potassium 4.1, BUN 27 better, creatinine 0.9. The kidney functions are coming back. He did have a little bit of acute kidney renal insufficiency when he came in. GFR is greater than 60. Sugar is 126. Calcium is 9.1, total bilirubin is 0.4, AST is 41, ALT is 30, alkaline phosphatase 201, total protein is 8.2. PLAN: He will be seen by infectious disease today. Continue with IV antibiotics, IV fluids. He is here for a urinary tract infection, sepsis picture, ulcers, Alzheimer's disease, he is bedridden and old CVA. Maykel Btets DO
[2017-05-01] MEDS: Latanoprost 2.5 ml Opht Soln OD SCH (22:29)
--- NOTE | 2017-05-02 01:26 | CON ---
DATE: 05/01/2017 CHIEF COMPLAINT: Request for change in mental status and . HISTORY OF PRESENT ILLNESS: This is a 71-year-old male with past medical history of dementia, seizures, diabetes mellitus, hypertension, urinary tract infection, Klebsiella bacteremia, history of decubitus ulcer with ESBL, Klebsiella, and Proteus in urine and Proteus in the decubitus ulcer. The patient's son states that the patient is more lethargic than usual and he had low-grade fevers, he was admitted and had multiple decubitus ulcers. Infectious disease consultation requested. The patient is unable to give any history. Information is gathered from Dr. Maykel Betts himself. There has been low-grade fevers reported. No diarrhea or constipation reported. No bright red blood per rectum reported and mild shortness of breath but no chest pain reported. PAST MEDICAL HISTORY: Significant for diabetes mellitus, hypertension, coronary artery disease, seizures, dementia, history of ESBL Klebsiella and decubitus ulcer, history of Klebsiella bacteremia, history of Proteus urinary tract infection. PAST SURGICAL HISTORY: Significant for a PEG tube placement, colostomy, and glaucoma surgery. 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 MEDICATIONS AT HOME: Includes the patient to be on omeprazole, metoprolol, folic acid, Keppra, Aricept. PHYSICAL EXAMINATION: VITAL SIGNS: The patient is in bed with a temperature of 99, T-max with 99.4, heart rate of 103, and respiratory rate of 21, blood pressure is 104/60. HEENT: Unremarkable. NECK: Supple. LUNGS: Decreased breath sounds. HEART: Normal S1 and S2. ABDOMEN: Soft. SKIN: Multiple decubitus ulcers that is on the buttocks . LABORATORY DATA: Reveals a white count of 14,300, hemoglobin of 9, and platelets of 466. Chemistries reveal a BUN of 34, creatinine of 1.2, glucose is 164, alk phos is 236. Urinalysis reveals 25 to 30 wbc's and many bacteria. Chest x-ray is reported to be negative. Dr. Maykel Betts's history and physical examination is reviewed and emergency room chart is reviewed, written by Dr. Antoine Shah. EKG shows a QTc of 417. ASSESSMENT AND PLAN: This is a 71-year-old male with dementia, seizures, diabetes, hypertension, ESBL Klebsiella decubitus infection, Klebsiella bacteremia in the past, coronary artery disease was admitted with sepsis with a decubitus ulcer and urine as a source. We will treat the patient with vancomycin and meropenem, pending blood culture, urine culture and wound culture results. Overall prognosis quite poor for this patient. We will follow closely with you. Case discussed with Dr. Maykel Betts. Nayan Perdomo MD
[2017-05-02] MEDS: Meropenem 1g/NS 100mL IVPB 1 GM/100 ML PIGGYBACK IVPB SCH ×3 (05:16→22:09)
[2017-05-02] MEDS: GLUCERNA GT SCH ×5 (05:22→22:12)
[2017-05-02 07:06] LABS: HEMATOCRIT 28.5 % (42.0-52.0); MEAN CELL VOLUME 81.4 fl (80.0-105.0); MEAN CORPUSCULAR HEMOGLOBIN 26.3 pg (25.0-35.0); MEAN CORPUSCULAR HGB CONC 32.3 g/dl (31.0-37.0); MEAN PLATELET VOLUME 8.7 fl (7.0-11.0); RED CELL DISTRIBUTION WIDTH 16.6 % (11.5-14.5); WHITE BLOOD COUNT 10.7 10^3/ul (4.5-11.0)
[2017-05-02 07:30] LABS: ALB/GLOB RATIO 0.6 (1.1-1.8); ALKALINE PHOSPHATASE 199 U/L (38-133); ALT/SGPT 39 U/L (7-56); AST/SGOT 39 U/L (15-59); BILIRUBIN,TOTAL 0.1 mg/dL (0.2-1.3); BLOOD UREA NITROGEN 23 mg/dL (7-21); CARBON DIOXIDE 15 mmol/L (21-33); CHLORIDE 122 mmol/L (98-107); GFR AFRICAN-AMERICAN > 60; GLUCOSE,RANDOM 111 mg/dL (70-110); POTASSIUM 4.1 mmol/L (3.6-5.0); SODIUM 148 mmol/L (132-148); TOTAL PROTEIN 7.9 g/dL (5.8-8.3)
[2017-05-02] MEDS: Insulin Reg-HIGH-Coverage SC SCH ×4 (08:00→22:06)
[2017-05-02] MEDS: levETIRAcetam 500 mg/5ml UD cups GT SCH ×2 (11:10→17:43)
[2017-05-02] MEDS: Pantoprazole 40 mg Susp UD GT SCH (11:11)
[2017-05-02] MEDS: Vancomycin 1gm in NS 250ml 1 GM/250 ML BAG IVPB SCH (11:12)
--- NOTE | 2017-05-02 14:22 | CP.PCM.PN ---
Subjective - Date & Time of Evaluation Date of Evaluation: 05/02/17 Time of Evaluation: 11:40 - Subjective Subjective: Comfortable in bed, no fevers. Not in distress. Objective - Vital Signs/Intake and Output Vital Signs (last 24 hours): Temp Pulse Resp BP Pulse Ox 97.5 F L 106 H 20 106/56 L 99 05/02/17 07:36 05/02/17 07:36 05/02/17 07:36 05/02/17 07:36 05/02/17 07:36 Intake and Output: 05/02/17 05/02/17 06:59 18:59 Intake Total 1070 Output Total 400 Balance 670 - Medications Medications: Current Medications Acetaminophen (Tylenol 325 Mg Supp) 650 mg RC Q4H PRN PRN Reason: Fever >100.4 F Sodium Chloride (Sodium Chloride 0.45%) 1,000 mls @ 60 mls/hr IV .[id number] [facility] Last Admin: 05/01/17 12:50 Dose: 60 mls/hr Meropenem 1g/NS 100mL IVPB (Meropenem 1g/Ns 100ml Ivpb) 1 gm in 100 mls @ 100 mls/hr IVPB Q8 HENRIQUE PRN Reason: Protocol Stop: 05/10/17 14:01 Last Admin: 05/02/17 05:16 Dose: 100 mls/hr Vancomycin HCl (Vancomycin 1gm) 1 gm in 250 mls @ 167 mls/hr IVPB Q12H HENRIQUE PRN Reason: Protocol Stop: 05/10/17 11:46 Last Admin: 05/01/17 22:56 Dose: 167 mls/hr Insulin Human Regular (Humulin R High) 0 units SC ACHS HENRIQUE PRN Reason: Protocol Last Admin: 05/01/17 22:35 Dose: Not Given Latanoprost (Xalatan Opht) 0 ml OD HS [facility] Last Admin: 05/01/17 22:29 Dose: 2.5 ml Levetiracetam (Keppra) 750 mg GT BID [facility] Last Admin: 05/01/17 17:32 Dose: 750 mg Metoprolol Tartrate (Lopressor) 25 mg GT BID [facility] Last Admin: 05/01/17 17:33 Dose: 25 mg Non-Formulary Medication (Glucerna 1.0) 237 ml GT 5XD [facility] Last Admin: 05/02/17 05:22 Dose: 237 ml Ondansetron HCl (Zofran Inj) 4 mg IVP Q4H PRN PRN Reason: Nausea/Vomiting Pantoprazole Sodium (Protonix Susp) 40 mg GT DAILY HENRIQUE Last Admin: 05/01/17 09:30 Dose: 40 mg - Labs Labs: 05/02/17 06:45 05/02/17 06:45 PT 11.4 Seconds (9.9-11.8) 04/30/17 13:57 INR 1.06 (0.93-1.08) 04/30/17 13:57 APTT 35.9 Seconds (23.7-30.8) H 04/30/17 13:57 - Constitutional Appears: Non-toxic, No Acute Distress - Head Exam Head Exam: NORMAL INSPECTION - ENT Exam ENT Exam: Mucous Membranes Moist - Neck Exam Neck Exam: absent: Meningismus - Respiratory Exam Respiratory Exam: Decreased Breath Sounds - Cardiovascular Exam Cardiovascular Exam: +S1, +S2 - GI/Abdominal Exam GI & Abdominal Exam: Soft. absent: Tenderness Assessment and Plan - Assessment and Plan (Free Text) Plan: Assessment consider infected sacral ulcers, and UTI history of infected decubitus ulcers of the right and left hip areas (right hip is stage 4), grew ESBL-producing Klebsiella and PRoteus history of UTI with Pseudomonas history of C diff associated diarrhea CVA DM HTN dementia decubitus ulcer of the hip area Plan continue vancomycin and meropenem day 2 pending final wound and blood cx and repeat urine cx results; intial urine cx shows contamination, will await repeat will monitor clinically discussed with Dr. Betts
--- NOTE | 2017-05-02 16:14 | PN ---
I saw him resting in bed. He is looking better when he looks at me. His eyes are moving both sides. His mouth is full wide open at his baseline, in no acute distress. He is on Glucerna, insulin, Keppra, Lopressor, Merrem IV, Protonix, IV fluids, Tylenol, vancomycin IV, Xalatan and Zofran. PHYSICAL EXAMINATION VITAL SIGNS: 97.5 temp, 106 pulse, 106/56 blood pressure, 20 respiratory rate, and 99% O2 sat on room air. HEENT: Head is atraumatic and normocephalic. His eyes are now moving both sides on looking at me. His mouth is open, mouth is dry from mouth breathing. NECK: Supple. HEART: Regular rate. LUNGS: Decreased breath sounds bilaterally but clear, less congestion. ABDOMEN: Soft. He has a colostomy and a feeding tube. EXTREMITIES: All 4 extremities are contracted. He has got bilateral heel ulcers and sacral ulcers. LABORATORY DATA: He has a 10.7 white count, 9.2 hemoglobin, 28.5 hematocrit with 529 platelets. 148 sodium, potassium 4.1, BUN is 23, creatinine 0.8, which is again better. GFR is greater than 60, sugar is 111, calcium is 9, total bili is 0.1, AST is 39, ALT is 39, alkaline phosphatase is 199, total protein 7.9, albumin is 3.1. His urine was very dirty. He is being seen by infectious disease. He has a chest x-ray, was also no active disease. Infectious disease doctor has him on IV antibiotics for sepsis, pending the cultures. I have discussed all this with the family members trying to explain everything done. When we repeat the urine, multiple species. No growth in blood cultures. Antibiotics as per infectious disease, his white count is normal, we will change it to p.o. and I will discharge him and infectious disease tells me to tomorrow. Continue with aggressive treatment and care on the patient. We will see sacral ulcers, heel ulcers, sepsis, UTI, end-stage Alzheimer's disease, old CVA. Maykel Betts DO cc: [facility] # [id number] MTDDamaris
[2017-05-02] MEDS: Latanoprost 2.5 ml Opht Soln OD SCH (22:09)
[2017-05-02] MEDS: Sodium Chloride 0.45% 1,000 ML IV SCH (22:13)
[2017-05-03] MEDS: Meropenem 1g/NS 100mL IVPB 1 GM/100 ML PIGGYBACK IVPB SCH ×2 (05:04→14:39)
[2017-05-03] MEDS: GLUCERNA GT SCH ×3 (05:04→14:39)
[2017-05-03 07:53] VITALS: BP 110/60; RESP 22; TEMP 97.6; O2SAT 99
[2017-05-03] MEDS: Insulin Reg-HIGH-Coverage SC SCH ×3 (08:48→17:46)
[2017-05-03 09:24] LABS: HEMATOCRIT 28.6 % (42.0-52.0); MEAN CELL VOLUME 82.7 fl (80.0-105.0); MEAN CORPUSCULAR HEMOGLOBIN 26.3 pg (25.0-35.0); MEAN CORPUSCULAR HGB CONC 31.8 g/dl (31.0-37.0); MEAN PLATELET VOLUME 8.7 fl (7.0-11.0); RED CELL DISTRIBUTION WIDTH 16.7 % (11.5-14.5); WHITE BLOOD COUNT 11.7 10^3/ul (4.5-11.0)
[2017-05-03 09:34] LABS: ALB/GLOB RATIO 0.6 (1.1-1.8); ALKALINE PHOSPHATASE 179 U/L (38-133); ALT/SGPT 35 U/L (7-56); AST/SGOT 36 U/L (15-59); BILIRUBIN,TOTAL 0.1 mg/dL (0.2-1.3); BLOOD UREA NITROGEN 19 mg/dL (7-21); CARBON DIOXIDE 17 mmol/L (21-33); CHLORIDE 120 mmol/L (98-107); GFR AFRICAN-AMERICAN > 60; GLUCOSE,RANDOM 104 mg/dL (70-110); POTASSIUM 4.3 mmol/L (3.6-5.0); SODIUM 148 mmol/L (132-148)
[2017-05-03] MEDS: levETIRAcetam 500 mg/5ml UD cups GT SCH (10:29)
[2017-05-03] MEDS: Pantoprazole 40 mg Susp UD GT SCH (10:36)
[2017-05-03 10:39] VITALS: PULSE 98
--- NOTE | 2017-05-03 11:50 | PN ---
DATE: changed him to tablets. We will find out later when we get the results back of the urinalysis and I will talk to Infectious Disease. SUBJECTIVE: He is currently resting in bed. His eyes are open. He is looking at me. His mouth is open. He was given IV antibiotics. PEG tube feedings not to his baseline. He is bedridden. He has multiple ulcers on his heels and sacral area. He has UTI, he has got end-stage dementia, and stroke. PHYSICAL EXAMINATION: VITAL SIGNS: 97.6 temp, 102 pulse, 110/60 blood pressure, 22 respiratory rate, and 99% sat on room air. HEENT: Head is atraumatic and normocephalic. His eyes are following me today. His mouth is open. HEART: Regular rate. LUNGS: Decreased breath sounds, but clear. ABDOMEN: Soft, positive PEG tube and colostomy. EXTREMITIES: Contractible four of them. He has got ulcer on both heels and sacral area. MEDICATIONS: He is currently on Lopressor, Glucerna, insulin, Keppra, Merrem, Protonix, IV fluids, Tylenol, vancomycin, Xalatan, and Zofran. LABORATORY DATA: His labs are pending this morning. His last blood sugar was 116. ASSESSMENT AND PLAN: I will discuss with Infectious Disease today the plan and if we could change him to tablets, we will try and discharge him later. Otherwise, he will continue with the IV antibiotics for his sepsis. get discharge today. Maykel Betts DO MTDD
[2017-05-03] MEDS: Vancomycin 1gm in NS 250ml 1 GM/250 ML BAG IVPB SCH ×2 (12:50)
--- NOTE | 2017-05-03 13:48 | CP.PCM.PN ---
Subjective - Date & Time of Evaluation Date of Evaluation: 05/03/17 Time of Evaluation: 11:00 - Subjective Subjective: Comfortable in bed, not in distress, afebrile. Objective - Vital Signs/Intake and Output Vital Signs (last 24 hours): Temp Pulse Resp BP Pulse Ox 97.6 F 102 H 22 110/60 99 05/03/17 07:52 05/03/17 07:52 05/03/17 07:52 05/03/17 07:52 05/03/17 07:52 Intake and Output: 05/03/17 05/03/17 06:59 18:59 Intake Total 0 Output Total 650 Balance -650 - Medications Medications: Current Medications Acetaminophen (Tylenol 325 Mg Supp) 650 mg RC Q4H PRN PRN Reason: Fever >100.4 F Sodium Chloride (Sodium Chloride 0.45%) 1,000 mls @ 60 mls/hr IV .[id number] [facility] Last Admin: 05/02/17 22:13 Dose: 60 mls/hr Meropenem 1g/NS 100mL IVPB (Meropenem 1g/Ns 100ml Ivpb) 1 gm in 100 mls @ 100 mls/hr IVPB Q8 [facility] PRN Reason: Protocol Stop: 05/10/17 14:01 Last Admin: 05/03/17 05:04 Dose: 100 mls/hr Vancomycin HCl (Vancomycin 1gm) 1 gm in 250 mls @ 167 mls/hr IVPB Q12H [facility] PRN Reason: Protocol Stop: 05/10/17 11:46 Last Admin: 05/03/17 00:00 Dose: 167 mls/hr Insulin Human Regular (Humulin R High) 0 units SC ACHS [facility] PRN Reason: Protocol Last Admin: 05/03/17 08:48 Dose: Not Given Latanoprost (Xalatan Opht) 0 ml OD HS [facility] Last Admin: 05/02/17 22:09 Dose: 2.5 ml Levetiracetam (Keppra) 750 mg GT BID [facility] Last Admin: 05/02/17 17:43 Dose: 750 mg Metoprolol Tartrate (Lopressor) 25 mg GT BID [facility] Last Admin: 05/02/17 17:44 Dose: 25 mg Non-Formulary Medication (Glucerna 1.0) 237 ml GT 5XD [facility] Last Admin: 05/03/17 05:04 Dose: 237 ml Ondansetron HCl (Zofran Inj) 4 mg IVP Q4H PRN PRN Reason: Nausea/Vomiting Pantoprazole Sodium (Protonix Susp) 40 mg GT DAILY [facility] Last Admin: 05/02/17 11:11 Dose: 40 mg - Labs Labs: 05/03/17 09:00 05/03/17 09:00 PT 11.4 Seconds (9.9-11.8) 04/30/17 13:57 INR 1.06 (0.93-1.08) 04/30/17 13:57 APTT 35.9 Seconds (23.7-30.8) H 04/30/17 13:57 - Constitutional Appears: Non-toxic, No Acute Distress - Head Exam Head Exam: NORMAL INSPECTION - ENT Exam ENT Exam: Mucous Membranes Moist - Neck Exam Neck Exam: absent: Meningismus - Respiratory Exam Respiratory Exam: Decreased Breath Sounds - Cardiovascular Exam Cardiovascular Exam: +S1, +S2 - GI/Abdominal Exam GI & Abdominal Exam: Soft. absent: Tenderness Assessment and Plan - Assessment and Plan (Free Text) Plan: Assessment consider infected sacral ulcers, and UTI history of infected decubitus ulcers of the right and left hip areas (right hip is stage 4), grew ESBL-producing Klebsiella and PRoteus history of UTI with Pseudomonas history of C diff associated diarrhea CVA DM HTN dementia decubitus ulcer of the hip area Plan continue vancomycin and meropenem day 3 pending final wound cx results; blood cx and repeat urine cx are negative; intial urine cx shows contamination will continue to monitor clinically discussed with Dr. Betts
[2017-05-03] MEDS: Sodium Chloride 0.45% 1,000 ML IV SCH (14:40)
--- NOTE | 2017-05-20 06:43 | DS ---
I have been seeing the patient at home on hospice for a very long time this year on IV antibiotics for multiple infections and we were able to transfer him to tablets from IV fluids as per Infectious Disease, which is a good thing. He was actually back to his baseline. He has multiple ulcers and heel ulcers and sacral ulcers and UTI and end-stage dementia and stroke and he stays at home with family taking care of him, feeding with a PEG tube and a colostomy. He will continue with his medications. I discussed that with the , also did very well and we will see in the hospital. Maykel Betts DO
== END 2017-05-03 17:52 | disposition home or self-care (01) | DRG 871 ==
LOC: ED 13:40 → ERH 14:44 → 5RNO 17:55
PROVIDERS: ADMIT Family Medicine; ATTEND Family Medicine
PROC: 3E0G76Z Introduction of Nutritional Substance into Upper GI, Via Natural or Artificial Opening (ICD-10-PCS; principal; 2017-04-30)
PROC: 3E0F7GC Introduction of Other Therapeutic Substance into Respiratory Tract, Via Natural or Artificial Opening (ICD-10-PCS; 2017-04-30)
DX: A41.9 Sepsis, unspecified organism (principal); L89.214 Pressure ulcer of right hip, stage 4; L89.159 Pressure ulcer of sacral region, unspecified stage; N39.0 Urinary tract infection, site not specified; L89.222 Pressure ulcer of left hip, stage 2; G30.9 Alzheimer's disease, unspecified; F02.80 Dementia in other diseases classified elsewhere, unspecified severity, without behavioral disturbance, psychotic disturbance, mood disturbance, and anxiety; I10 Essential (primary) hypertension; K21.9 Gastro-esophageal reflux disease without esophagitis; R15.9 Full incontinence of feces; R32 Unspecified urinary incontinence; E11.9 Type 2 diabetes mellitus without complications; I25.10 Atherosclerotic heart disease of native coronary artery without angina pectoris; G40.909 Epilepsy, unspecified, not intractable, without status epilepticus; L89.629 Pressure ulcer of left heel, unspecified stage; L89.619 Pressure ulcer of right heel, unspecified stage; Z93.1 Gastrostomy status; Z74.01 Bed confinement status; Z86.73 Personal history of transient ischemic attack (TIA), and cerebral infarction without residual deficits; Z93.3 Colostomy status; Z86.14 Personal history of Methicillin resistant Staphylococcus aureus infection

== ENCOUNTER 2017-05-28 11:02 | Inpatient (IN) | payer MEDICARE, OTHER ==
--- NOTE | 2017-05-28 11:51 | ED PDOC ---
Arrival/HPI - General Chief Complaint: Shortness Of Breath Time Seen by Provider: 05/28/17 11:25 Historian: Family EM Caveat: Other (Patient is lethargic, nonverbal.) - History of Present Illness Narrative History of Present Illness (Text): 05/28/17 11:47 A 71 year old male, whose past medical history includes hypertension, dementia, diabetes, past CVA, presents to the emergency department via EMS. As per family , the patient felt warm and was found to be lethargic this morning. They state that he has been having shortness of breath since last night and 1 week duration of diarrhea. ROS limited, patient is lethargic and non verbal. PMD: Dr. Freda Betts Time/Duration: Other (Last Night) Symptom Onset: Sudden Symptom Course: Unchanged Activities at Onset: Rest, Light Context: Home Past Medical History - Provider Review Nursing Documentation Reviewed: Yes - Infectious Disease Hx of Infectious Diseases: None - Tetanus Immunization Tetanus Immunization: Unknown - Cardiac Hx Hypertension: Yes - Pulmonary Hx Respiratory Disorders: No - Neurological Hx Alzheimer's Disease: Yes HX Cerebrovascular Accident: Yes - HEENT Hx HEENT Disorder: Yes (peg tube) Hx Difficulty Chewing: Yes Hx Glaucoma: Yes (LASER SURGERY) - Renal Hx Renal Disorder: Yes - Endocrine/Metabolic Hx Diabetes Mellitus Type 1: Yes - Hematological/Oncological Hx Blood Disorders: No - Integumentary Other/Comment: multiple decubiti ulcers to sacrum and buttocks, b/l heel wounds , peg insertion site priyanka clear drainage noted - Musculoskeletal/Rheumatological Hx Falls: No - Gastrointestinal Hx Gastrointestinal Disorders: Yes (PEG) Hx Colostomy: Yes Hx Gastroesophageal Reflux: Yes - Genitourinary/Gynecological Hx Genitourinary Disorders: Yes Hx Incontinence: Yes - Psychiatric Hx Emotional Abuse: No Hx Physical Abuse: No Hx Substance Use: No - Past Surgical History Past Surgical History: Unable to Obtain - Surgical History Other/Comment: colostomy, picc in and out, peg tube - Anesthesia Hx Anesthesia: Yes Hx Anesthesia Reactions: No Hx Malignant Hyperthermia: No - Suicidal Assessment Feels Threatened In Home Enviroment: No Family/Social History - Physician Review Nursing Documentation Reviewed: Yes Family/Social History: No Known Family HX Smoking Status: Never Smoked Hx Alcohol Use: No Hx Substance Use: No Hx Substance Use Treatment: No Allergies/Home Meds Allergies/Adverse Reactions: Allergies Latex, Natural Rubber Adverse Reaction (Verified 05/28/17 11:21) SWELLING Home Medications: Home Meds Medication Instructions Recorded Confirmed Metoprolol Tartrate [Lopressor] 25 mg GT BID 12/31/16 05/28/17 Omeprazole 40 mg GT DAILY 12/31/16 05/28/17 Albuterol/Ipratropium [Duoneb 3 3 ml IH PRN PRN 04/30/17 05/28/17 MG/3 Ml-0.5 MG/3 Ml 3 Ml] Docu-Liquid 5 ml GT PRN PRN 04/30/17 05/28/17 Folic Acid 1 mg GT DAILY 04/30/17 05/28/17 Glucerna 1.0 237 ml GT Q4 04/30/17 05/28/17 levETIRAcetam [Keppra] 750 mg GT BID 04/30/17 05/28/17 Review of Systems - Physician Review All systems were reviewed & negative as marked: Yes - Review of Systems Systems not reviewed;Unavailable: Other (Lethargic and Non-verbal) Physical Exam Vital Signs Reviewed: Yes Vital Signs Temp Pulse Resp BP Pulse Ox 05/28/17 13:15 114 H 20 102/42 L 100 05/28/17 12:32 114 H 33 H 118/40 L 100 05/28/17 12:00 110 H 40 H 102/41 L 100 05/28/17 11:20 99.4 F 104 H 18 133/51 L 97 Temperature: Afebrile Blood Pressure: Normal Pulse: Tachycardic Respiratory Rate: Tachypneic Appearance: Positive for: Ill-Appearing Pain Distress: Other (does not appear to be in pain) Mental Status: Positive for: Lethargic - Systems Exam Head: Present: Atraumatic, Normocephalic Pupils: Present: PERRL Conjunctiva: Present: Other (pale) Mouth: Present: Dry Pharnyx: No: ERYTHEMA, EXUDATE, TONSILS ENLARGED Neck: Present: Normal Range of Motion Respiratory/Chest: Present: Rhonchi (Scattered rhonchi) Cardiovascular: Present: Normal S1, S2, Tachycardic Abdomen: Present: Ostomy Tubes (PEG and colostomy tubes). No: Distention Genitourinary Male: Present: Other (jackson catheter in place) Back: Present: Decubitus Ulcer (right buttock stage 4 sacral decubitus) Upper Extremity: Present: Other (contracted). No: Edema, Erythema Lower Extremity: Present: Other (Contracted). No: Edema Neurological: No: Speech Normal Psychiatric: Present: Lethargic Medical Decision Making ED Course and Treatment: 05/28/17 11:53 Impression: A 71 year old male brought in for lethargy this morning, shortness of breath since last night and 1 week duration of diarrhea. Plan: -- EKG -- Chest X-Ray -- Labs -- Blood. Urine Culture -- Urinalysis -- Atrovent, Xopenex, IV Fluids -- Reassess and disposition Prior Visits: Notes and results from previous visits were reviewed. On 04/30/17 patient came in for further evaluation after becoming more lethargic. Patient was hospitalized. Progress Notes: 05/28/17 14:41 Patient's temp on presentation was 99.4 F; unable to perform rectal or more accurate temp but likely febrile given history, labs, and tachycardia. WBC is 18K; chemistry shows him to be dry. Source is unclear at this time. Will give zosyn and vanco for emperic treatment of sepsis. Will order CT a/p, given history if diarrhea. Per son, the patient is to be DNI and DNR if deemed to be futile. Case was discussed with PMD, Dr. Betts, for admission for evaluation and treatment of sepsis. - Lab Interpretations Lab Results: 05/28/17 12:50 05/28/17 11:55 Lab Results 05/28/17 12:50: WBC 18.1 H D, RBC 3.50, Hgb 9.0 L, Hct 27.2 L, MCV 77.7 L D, MCH 25.7, MCHC 33.1, RDW 15.7 H, Plt Count 412, MPV 9.1, Gran % 90.3 H, Lymph % (Auto) 6.0 L, Cedar % (Auto) 3.5, Eos % (Auto) 0.1 L, Baso % (Auto) 0.1, Gran # 16.39 H, Lymph # 1.1 L, Cedar # 0.6, Eos # 0.0, Baso # 0.01, Neutrophils % ( Manual) 81 H, Band Neutrophils % 8 H, Lymphocytes % (Manual) 6 L, Monocytes % ( Manual) 5, ESR 135 H 05/28/17 12:45: PT 12.6 H, INR 1.17 H, APTT 30.8 05/28/17 11:55: Sodium 128 L, Chloride 105, Potassium 5.2 H, Carbon Dioxide 12 L , Anion Gap 16, BUN 49 H, Creatinine 1.5 H, Est GFR ( Amer) 56, Est GFR ( Non-Af Amer) 46, Random Glucose 138 H, Calcium 8.2 L, Phosphorus 3.9, Magnesium 2.6 H, Total Bilirubin 1.1, AST 89 H, ALT 41, Alkaline Phosphatase 337 H, Lactate Dehydrogenase 1015 H, Total Creatine Kinase 859 H, CK-MB (CK-2) 1.2, CK- MB (CK-2) % Cancelled, Troponin I < 0.01, NT-Pro-B Natriuret Pep 685 H, Total Protein 8.3, Albumin 3.2, Globulin 5.1, Albumin/Globulin Ratio 0.6 L, Lipase 192 05/28/17 11:55: pO2 53, VBG pH 7.30 L, VBG pCO2 27.0 L, VBG HCO3 13.3 L, VBG Total CO2 14.1 L, VBG O2 Sat (Calc) 90.0 H, VBG Base Excess -11.8 L, VBG Potassium 4.8, Sodium 128.0 L, Chloride 105.0, Glucose 154 H, Lactate 1.9, FiO2 21.0, Venous Blood Potassium 4.8 I have reviewed the lab results: Yes - RAD Interpretation Radiology Orders: 05/28/17 11:55 CHEST PORTABLE [RAD] Stat - EKG Interpretation Interpreted by ED Physician: Yes Type: 12 lead EKG - Medication Orders Current Medication Orders: Vancomycin HCl 1 gm/ Sodium (Chloride) 250 mls @ 133.333 mls/hr IV STAT STA PRN Reason: Protocol Stop: 05/28/17 15:11 Discontinued Medications Acetaminophen (Tylenol 650mg/20.3ml Solution Ud) 960 mg PO ONCE STA Stop: 05/28/17 13:30 Last Admin: 05/28/17 13:58 Dose: 960 mg Sodium Chloride (Sodium Chloride 0.9%) 1,000 mls @ 999 mls/hr IV .Q1H1M STA Stop: 05/28/17 12:56 Last Admin: 05/28/17 12:01 Dose: 999 mls/hr Piperacillin Sod/Tazobactam Sod (Zosyn 2.25 Gm In 0.9% 100 Ml) 2.25 gm in 100 mls @ 100 mls/hr IVPB STAT STA PRN Reason: Protocol Stop: 05/28/17 14:18 Last Admin: 05/28/17 13:36 Dose: 100 mls/hr Ipratropium [place] (Atrovent) 0.5 mg IH STAT STA Stop: 05/28/17 11:57 Last Admin: 05/28/17 12:08 Dose: 0.5 mg Levalbuterol HCl (Xopenex) 1.25 mg IH STAT STA Stop: 05/28/17 11:57 Last Admin: 05/28/17 12:08 Dose: 1.25 mg - Scribe Statement The provider has reviewed the documentation as recorded by the Cliffibstacie Sanford Provider Scribe Attestation: All medical record entries made by the Cliffibstacie were at my direction and personally dictated by me. I have reviewed the chart and agree that the record accurately reflects my personal performance of the history, physical exam, medical decision making, and the department course for this patient. I have also personally directed, reviewed, and agree with the discharge instructions and disposition Disposition/Present on Arrival - Present on Arrival Any Indicators Present on Arrival: Yes History of DVT/PE: No History of Uncontrolled Diabetes: No Urinary Catheter: Yes History of Decub. Ulcer: Yes History Surgical Site Infection Following: None - Disposition Have Diagnosis and Disposition been Completed?: Yes Diagnosis: Sepsis Disposition: HOSPITALIZED Disposition Time: 13:40 Patient Plan: Admission, Telemetry Condition: SERIOUS
[2017-05-28] MEDS ORDERED: Levalbuterol 1.25 MG/3 ML Inhal Soln UD IH STA (11:56)
[2017-05-28] MEDS ORDERED: Sodium Chloride 0.9% 1,000 ML IV STA (11:56)
[2017-05-28] MEDS ORDERED: Ipratropium 0.02% Inhal Soln (0.5 mg/2.5 ml) UD IH STA (11:56)
[2017-05-28 12:17] LABS: VENOUS BLOOD GAS BASE EXCESS -11.8 mmol/L (0.0-2.0)
[2017-05-28 12:31] LABS: ALB/GLOB RATIO 0.6 (1.1-1.8); ALKALINE PHOSPHATASE 337 U/L (38-126); ALT/SGPT 41 U/L (7-56); AST/SGOT 89 U/L (17-59); BILIRUBIN,TOTAL 1.1 mg/dL (0.2-1.3); BLOOD UREA NITROGEN 49 mg/dL (7-21); CALCIUM 8.2 mg/dL (8.4-10.5); CARBON DIOXIDE 12 mmol/L (21-33); CHLORIDE 105 mmol/L (98-107); GFR AFRICAN-AMERICAN 56; GLUCOSE,RANDOM 138 mg/dL (70-110); LIPASE 192 U/L (23-300); MAGNESIUM 2.6 mg/dL (1.7-2.2); PHOSPHOROUS 3.9 mg/dL (2.5-4.5); POTASSIUM 5.2 mmol/L (3.6-5.0); SODIUM 128 mmol/L (132-148); TOTAL PROTEIN 8.3 g/dL (5.8-8.3)
[2017-05-28 12:44] LABS: TROPONIN I < 0.01 ng/mL
[2017-05-28] MEDS ORDERED: Piperacillin/Tazobact 2.25gm 2.25 GM/100 ML BAG IVPB STA (13:19)
[2017-05-28] MEDS ORDERED: Acetaminophen 160 mg/5 ml UD PO STA (13:20)
[2017-05-28 13:27] LABS: BASO # 0.01 K/mm3 (0.0-2.0); BASO % 0.1 % (0.0-3.0); EOS % 0.1 % (1.5-5.0); GRAN # 16.39 (1.4-6.5); GRAN % 90.3 % (50.0-68.0); HEMATOCRIT 27.2 % (42.0-52.0); LYMPH # 1.1 (1.2-3.4); MEAN CELL VOLUME 77.7 fl (80.0-105.0); MEAN CORPUSCULAR HEMOGLOBIN 25.7 pg (25.0-35.0); MEAN CORPUSCULAR HGB CONC 33.1 g/dl (31.0-37.0); MEAN PLATELET VOLUME 9.1 fl (7.0-11.0); MONO # 0.6 (0.1-0.6); MONO % 3.5 % (1.0-6.0); PLATELET COUNT 412 10^3/uL (120.0-450.0); RED CELL DISTRIBUTION WIDTH 15.7 % (11.5-14.5); WHITE BLOOD COUNT 18.1 10^3/ul (4.5-11.0)
[2017-05-28] MEDS ORDERED: Acetaminophen 650mg/20.3ml solution UD PO STA (13:29)
[2017-05-28 13:33] LABS: INR 1.17 (0.93-1.08); PARTIAL THROMBOPLASTIN TIME 30.8 Seconds (23.7-30.8)
[2017-05-28 14:01] LABS: BAND 8 % (0-2); NEUTROPHIL 81 % (50.0-70.0)
[2017-05-28 14:39] LABS: ERYTHROCYTE SEDIMENTATION RATE 135 mm/hr (0.00-15.0)
--- NOTE | 2017-05-28 15:49 | CT ---
PROCEDURE: CT HEAD WITHOUT CONTRAST. HISTORY: alt ms COMPARISON: None available. TECHNIQUE: Axial computed tomography images were obtained through the head/brain without intravenous contrast. Radiation dose: Total exam DLP = 822.62 mGy-cm. This CT exam was performed using one or more of the following dose reduction techniques: Automated exposure control, adjustment of the mA and/or kV according to patient size, and/or use of iterative reconstruction technique. FINDINGS: HEMORRHAGE: No acute parenchymal, subarachnoid nor extra-axial hemorrhage. . BRAIN: Moderate to significant diffuse/confluent chronic white matter ischemic changes seen extending peripherally into the deep and subcortical white matter both cerebral hemispheres. There is also some extension of these changes into the white matter tracts of both basal nuclei. Vascular calcifications both carotid siphons Moderate -significant central volume loss VENTRICLES: Ventricles are dilated felt to be secondary to central volume loss CALVARIUM: No acute calvarial fractures PARANASAL SINUSES: Mucous retention cyst left maxillary antrum MASTOID AIR CELLS: Unremarkable as visualized. No inflammatory changes. OTHER FINDINGS: None. IMPRESSION: Moderate to significant white matter ischemic changes with extension into the white matter tracts of both basal nuclei. Moderate to significant central spell volume loss.
--- NOTE | 2017-05-28 16:16 | CT ---
PROCEDURE: CT abdomen pelvis dated 05/28/2017 HISTORY: Sepsis. Diarrhea COMPARISON: None. TECHNIQUE: Contiguous axial images of the abdomen and pelvis. Oral contrast was administered. No IV contrast given. Coronal and Sagittal reformats generated. Radiation dose: Total exam DLP = 972.73 mGy-cm. This CT exam was performed using one or more of the following dose reduction techniques: Automated exposure control, adjustment of the mA and/or kV according to patient size, and/or use of iterative reconstruction technique. . Note that evaluation of the upper abdominal contents limited due to streak and beam hardening artifact arising from the upper extremities which have not been removed from the field of view FINDINGS: LOWER THORAX: Mild atelectasis CT and/ or scarring changes both lung bases. No evidence of basilar pneumothorax. LIVER: Limited evaluation as above. No obvious large hepatic mass or collection. No gross hepatic calcification GALLBLADDER AND BILE DUCTS: Gallbladder appears incompletely distended. No obvious intraluminal gallbladder calculi. PANCREAS: Unremarkable. No mass. No ductal dilatation. SPLEEN: No gross splenic abnormalities ADRENALS: Note obvious adrenal lesions. KIDNEYS AND URETERS: Approximately 3.9 cm renal cyst posterolateral aspect upper/midpole left kidney additionally, there is a small cyst anterolateral aspect lower pole left kidney as well. No evidence of nephrolithiasis or hydronephrosis BLADDER: In situ unclamped Machado catheter with small amount of air in the urinary bladder likely due to instrumentation. Urinary bladder is collapsed which presumably accounts for thick-walled appearance. Muscular hypertrophy may contribute. Possibility of cystitis not excluded. . REPRODUCTIVE: Prostate gland measures approximately 5 cm in transverse dimension. . APPENDIX: What is felt to represent normal appendix best seen on coronal image number [id number]. No evidence of acute appendicitis BOWEL: Evaluation of the bowel is limited due to the lack of oral contrast. . Stomach is incompletely distended which presumably accounts for thick-walled appearance. . Visualized loops of small bowel exhibit normal contour and caliber. No evidence of acute mechanical small bowel obstruction. There is a moderate-sized left anterolateral lower abdominal wall hernia through which a mesenteric fat and a short segment of the distal descending/ sigmoid colon extends. . Mild wall thickening of the rectum and to a lesser degree distal sigmoid. Colonoscopy followup may be prudent. PERITONEUM: No gross free intraperitoneal air LYMPH NODES: Unremarkable. No enlarged lymph nodes. VASCULATURE: No evidence of abdominal aortic aneurysm BONES: Multilevel degenerative spondylosis of the thoracic and lumbar spine. There is apparent chronic dislocation of the right femoral head with secondary degenerative osteoarthritis. Additionally, there is soft tissue seen within the acetabulum and surrounding the femoral neck and head periods doubles of air present within the acetabulum as well. . There appears to be a large decubitus ulcer along the soft tissues lateral hip with subcutaneous air. Findings most consistent with a cellulitis ; underlying abscess not excluded. Osteomyelitis is also suspected. Recommend followup 3 phase 3 phase bone scan and or MRI. Note these findings were discussed with Dr. Rodriguez at approximately 4:10 p.m. with written down and read back verification. OTHER FINDINGS: None. 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 Bubbles of air present within the acetabulum appeared large decubitus ulcer overlying the right hip with bubbles of air and what could represent small fluid. Findings are consistent with a cellulitis and possible abscess. Suspect underlying osteomyelitis of the femoral head and neck and greater trochanter region. Left renal cyst. Bladder wall thickening likely due to unclamped Machado catheter . Small amount of air is also present within the urinary bladder felt to be secondary to instrumentation. Cystitis or other intrinsic/invasive wall lesion not excluded. No evidence of acute appendicitis. There is a large hernia along the left anterolateral lower abdomen through which mesentery and a short segment of the distal descending and sigmoid colon extends. No evidence of obstruction. Mild wall thickening of the rectum nonspecific. Rule out invasive wall lesion. Follow-up colonoscopy recommended.
[2017-05-28 16:23] LABS: URINE BILIRUBIN NEGATIVE (NEGATIVE); URINE BLOOD LARGE (NEGATIVE); URINE GLUCOSE (UA) NEGATIVE (NEGATIVE); URINE KETONE NEGATIVE (NEGATIVE); URINE LEUKOCYTE ESTERASE LARGE Leu/uL (NEGATIVE); URINE PROTEIN 30 mg/dL (<30 mg/dL); URINE UROBILINOGEN 0.2 E.U./dL (<1 E.U./dL)
[2017-05-28 16:29] LABS: URINE APPEARANCE CLEAR (CLEAR); URINE COLOR YELLOW (YELLOW)
[2017-05-28 16:47] LABS: URINE BACTERIA MANY (NEG); URINE EPITHELIAL CELLS 0 - 2 /hpf (0-5); URINE RBC 25 - 30 /hpf (0-2); URINE WBC 25 - 30 /hpf (0-6)
[2017-05-28 16:48] LABS: URINE AMORPHOUS SEDIMENT FEW
--- NOTE | 2017-05-28 17:27 | RAD ---
HISTORY: Sepsis Patient COMPARISON: Correlation made with concurrent CT scan of the abdomen and pelvis which image both lung bases. Bold Comparison chest 04/30/2017 FINDINGS: LUNGS: No active mild bibasilar atelectasis. PLEURA: No significant pleural effusion identified, no pneumothorax apparent. CARDIOVASCULAR: Heart appears borderline/mildly enlarged. OSSEOUS STRUCTURES: No significant abnormalities. VISUALIZED UPPER ABDOMEN: Normal. OTHER FINDINGS: None. IMPRESSION: Mild bibasilar atelectasis
[2017-05-28] MEDS: Sodium Chloride 0.45% 1,000 ML IV SCH (18:17)
[2017-05-28 19:51] VITALS: BMI 20.3
[2017-05-28] MEDS ORDERED: Pneumococcal 23-Valent Vaccine IM ONE (19:51)
--- NOTE | 2017-05-28 20:20 | CP.PCM.CON ---
History of Present Illness - History of Present Illness History of Present Illness: General Surgery Consult Re: Ulcers 71M, well known to Dr. Carney's service, was brought in by family because the patient felt warm and was found to be lethargic. +SOB since last night and 1 week of diarrhea. ROS limited, patient is non verbal at baseline. Hx obtained from chart review. Patient uses chronic jackson's at home due to patient being bed bound. Surgical consult was obtained for ulcers which we have seen him for in the past. PMH: CVA, DM, HTN, dementia (non-verbal), decubitus ulcers, contractures, seizures, GERD, glaucoma PSH: Diverting colostomy, PEG SH: Lives at home with . Unknown All: Latex Meds: See MAR Review of Systems - Review of Systems Systems not reviewed;Unavailable: Dementia Past Patient History - Infectious Disease Hx of Infectious Diseases: None - Tetanus Immunizations Tetanus Immunization: Unknown - Past Social History Smoking Status: Never Smoked - CARDIAC Hx Cardiac Disorders: Yes Hx Hypertension: Yes - PULMONARY Hx Respiratory Disorders: No - NEUROLOGICAL Hx Neurological Disorder: Yes Hx Alzheimer's Disease: Yes HX Cerebrovascular Accident: Yes Hx Seizures: Yes - HEENT Hx HEENT Problems: Yes (peg tube) Hx Difficulty Chewing: Yes Hx Glaucoma: Yes (LASER SURGERY) - RENAL Hx Chronic Kidney Disease: Yes - ENDOCRINE/METABOLIC Hx Endocrine Disorders: Yes Hx Diabetes Mellitus Type 1: Yes - HEMATOLOGICAL/ONCOLOGICAL Hx Blood Disorders: Yes (SEPSIS) - INTEGUMENTARY Hx Dermatological Problems: Yes Other/Comment: multiple decubiti ulcers to sacrum STAGE 2 and R HIP STAGE 4 &L buttocks STAGE 2 , b/l heel wounds, peg.COLOSTOMY LEFT LOWER ABDOMINAL AREA. - MUSCULOSKELETAL/RHEUMATOLOGICAL Hx Musculoskeletal Disorders: Yes (CONTRACTURE) Hx Falls: Yes - GASTROINTESTINAL Hx Gastrointestinal Disorders: Yes (PEG) Hx Colostomy: Yes Hx Gastroesophageal Reflux: Yes - GENITOURINARY/GYNECOLOGICAL Hx Genitourinary Disorders: Yes Hx Incontinence: Yes - PSYCHIATRIC Hx Emotional Abuse: No Hx Physical Abuse: No Hx Substance Use: No - SURGICAL HISTORY Hx Surgeries: Yes Other/Comment: colostomy, picc in and out, peg tube - ANESTHESIA Hx Anesthesia: Yes Hx Anesthesia Reactions: No Hx Malignant Hyperthermia: No Meds Allergies/Adverse Reactions: Allergies Allergy/AdvReac Type Severity Reaction Status Date / Time Latex, Natural Rubber AdvReac SWELLING Verified 05/28/17 16:10 - Medications Medications: Current Medications Piperacillin Sod/Tazobactam Sod (Zosyn 2.25 Gm In 0.9% 100 Ml) 2.25 gm in 100 mls @ 100 mls/hr IVPB Q6 [facility] PRN Reason: Protocol Sodium Chloride (Sodium Chloride 0.45%) 1,000 mls @ 30 mls/hr IV .Q24H [facility] Last Admin: 05/28/17 18:17 Dose: 30 mls/hr Levalbuterol HCl (Xopenex) 0.63 mg IH [id number] [facility] Physical Exam - Constitutional Appears: No Acute Distress, Cachectic - Head Exam Head Exam: ATRAUMATIC, NORMOCEPHALIC - Eye Exam Eye Exam: absent: Scleral icterus Additional comments: cataracts - Respiratory Exam Respiratory Exam: absent: Accessory Muscle Use, Chest Wall Tenderness, Respiratory Distress - Cardiovascular Exam Cardiovascular Exam: Tachycardia - GI/Abdominal Exam GI & Abdominal Exam: Soft. absent: Distended, Firm, Guarding, Rigid - Rectal Exam Rectal Exam: Deferred - Extremities Exam Extremities exam: Negative for: pedal edema Additional comments: R foot with covered healing ulcers, L foot without ulceration - Back Exam Additional comments: Sacral ulcer with small amount of black eshar in center of wound, but otherwise healing. R hip slowly healing, no bleeding noted - Neurological Exam Additional comments: pt unable to cooperate with exam - Skin Skin Exam: Dry, Warm Results - Vital Signs Recent Vital Signs: Last Vital Signs Temp 98 F 05/28/17 18:50 Pulse 108 H 05/28/17 18:50 Resp 22 05/28/17 18:50 BP 93/54 L 05/28/17 18:50 Pulse Ox 100 05/28/17 18:15 - Labs Result Diagrams: 05/28/17 12:50 05/28/17 11:55 Labs: Laboratory Results - last 24 hr 05/28/17 15:54 Urine Color Yellow Urine Appearance Clear Urine pH 6.0 Ur Specific [place] 1.010 Urine Protein 30 H Urine Glucose (UA) Negative Urine Ketones Negative Urine Blood Large H Urine Nitrate Negative Urine Bilirubin Negative Urine Urobilinogen 0.2 Ur Leukocyte Esterase Large H Urine RBC 25 - 30 Urine WBC 25 - 30 Ur Epithelial Cells 0 - 2 Amorphous Sediment Few Urine Bacteria Many Hyaline Casts 0 - 2 Coarse Granular Casts Trace H Urine Other [place] Assessment & Plan - Assessment and Plan (Free Text) Assessment: 71 M with multiple decubiti Plan: - Air Mattress - Turn patient q2h - Heel supports - Duoderm dressing changes prn. Alginate on R Hip ulcer under duoderm - Continue ABX, f/u cxs D/W Dr. Rommel Sullivan PGY4
[2017-05-28] MEDS: Levalbuterol 0.63 MG/3 ML Inhal Soln UD IH SCH (20:59)
[2017-05-28] MEDS: Insulin Reg-HIGH-Coverage SC SCH (21:32)
[2017-05-28] MEDS: Latanoprost 2.5 ml Opht Soln OD SCH (21:49)
[2017-05-28] MEDS: Piperacillin/Tazobact 2.25gm 2.25 GM/100 ML BAG IVPB SCH ×2 (21:50→23:33)
[2017-05-29] MEDS ORDERED: NUT TX GLUC INTOLER LAC FR SOY GT SCH
[2017-05-29 01:41] LABS: VENOUS BLOOD GAS BASE EXCESS -10.3 mmol/L (0.0-2.0)
[2017-05-29] MEDS: Levalbuterol 0.63 MG/3 ML Inhal Soln UD IH SCH ×4 (03:18→21:03)
[2017-05-29] MEDS: Piperacillin/Tazobact 2.25gm 2.25 GM/100 ML BAG IVPB SCH (05:26)
[2017-05-29] MEDS ORDERED: Pantoprazole 40 mg Susp UD GT SCH (06:00)
[2017-05-29 07:20] LABS: HEMATOCRIT 24.8 % (42.0-52.0); MEAN CELL VOLUME 78.7 fl (80.0-105.0); MEAN CORPUSCULAR HGB CONC 33.1 g/dl (31.0-37.0); MEAN PLATELET VOLUME 8.8 fl (7.0-11.0); RED CELL DISTRIBUTION WIDTH 16.1 % (11.5-14.5); WHITE BLOOD COUNT 15.9 10^3/ul (4.5-11.0)
[2017-05-29 07:45] LABS: ALB/GLOB RATIO 0.6 (1.1-1.8); ALKALINE PHOSPHATASE 264 U/L (38-126); ALT/SGPT 41 U/L (7-56); AST/SGOT 39 U/L (17-59); BILIRUBIN,TOTAL 1.2 mg/dL (0.2-1.3); BLOOD UREA NITROGEN 34 mg/dL (7-21); CALCIUM 8.9 mg/dL (8.4-10.5); CARBON DIOXIDE 12 mmol/L (21-33); CHLORIDE 117 mmol/L (98-107); GFR AFRICAN-AMERICAN > 60; GLUCOSE,RANDOM 145 mg/dL (70-110); POTASSIUM 4.3 mmol/L (3.6-5.0); SODIUM 141 mmol/L (132-148); TOTAL PROTEIN 7.5 g/dL (5.8-8.3)
[2017-05-29] MEDS: Insulin Reg-HIGH-Coverage SC SCH ×4 (08:32→23:00)
--- NOTE | 2017-05-29 08:32 | HP ---
HISTORY OF PRESENT ILLNESS: I saw Mr. Abarca in his room in [facility] was called down. He was sent in from his home. I have been doing house calls on him for years. He is now septic again, very lethargic, nonverbal, but he has always been nonverbal in the past year at least. He is a 71-year-old man who is bedridden with a colostomy and a feeding tube, contraction, multiple ulcers in the heals and the sacrum. I believe now he has got one in the right hip which is fairly new. He has a past history of multiple times sepsis in the hospital, hypertension, dementia, diabetes, CVA, colostomy, feeding tube, was more lethargic, short of breath. He is not opening his eyes for me when I am talking. Mouth is open, nonverbal at his baseline. He had glaucoma surgery, his renal insufficiency, diabetes, multiple decubitus ulcers in sacrum, buttocks, heels, colostomy, PEG tube, reflux, incontinence. FAMILY HISTORY: No known family history. SOCIAL HISTORY: Never smoked, no alcohol, no drugs. ALLERGIES: LATEX ALLERGY. MEDICATIONS: He is on metoprolol, omeprazole, DuoNeb, Colace, folic acid, Glucerna, Keppra for seizure. REVIEW OF SYSTEMS: I cannot do review of systems, he is nonverbal at this time. PHYSICAL EXAMINATION: VITAL SIGNS: He has a 99.4 temp, 114 pulse, 32 respiratory rate, 118/40 blood pressure, 100% on O2. He is febrile. Low-grade temperature, ill appearing, contracted. HEENT: Head is normocephalic and atraumatic. His eyes have rolled in the back of his head. Throat is dry. O sign, crusting on the mouth. NECK: Supple. HEART: Regular rate. LUNGS: Decreased breath sounds, but clear. ABDOMEN: Belly has got a PEG tube, colostomy. No distention. EXTREMITIES: Have all contracted. He has +4 sacral ulcer in the hip. No edema of the legs. LABORATORY DATA: He had multiple tests, multiple problems. He has 128 sodium, potassium 5.2, BUN 49, creatinine 1.5. There is renal insufficiency, 138 sugar. Begin sliding scale, calcium is 8.2, magnesium 2.6, total bilirubin is 1.1, AST is 89, ALT is 41, alkaline phosphatase is 337, lactate dehydrogenase 1015, total creatine kinase is 859. Troponin is less than 0.01, C-reactive protein is higher greater than 15, BNP is 685, total protein is 8.3, lipase is 192, procalcitonin is 14.1. 18.1 white count very high, 9 hemoglobin, 27.2 hematocrit, with 412 platelets. INR is 1.17, PH is 7.3. He had multiple tests. Head CT shows moderate to significant white matter ischemic changes with extension to the white matter tracts with both basal nuclei and volume loss. He had abdominal pelvis CT shows chronic dislocation of the right femoral head with soft tissue surrounding the femoral head and neck with extension of the soft tissue to acetabulum. Bubbles are present within the acetabulum appear large decubitus ulcer overlying the right hip with bubbles represent small fluid consistent with cellulitis possible abscess, suspect underlying osteomyelitis, left renal cyst, bladder wall thickening likely due to unclamped [place], air in the urinary bladder, cystitis. He had a chest x-ray which shows mild bibasilar atelectasis, we will consult with infectious disease for IV antibiotics and infection, also surgery for his decubitus ulcer in air in his skin infection. He is going to be on Zosyn, Xopenex, IV fluids. We will put back on his medications from home. He has multiple problems. He is septic, dehydrated, renal insufficiency, right hip osteomyelitis was probably large sacral decubitus ulcer stage IV, probably rhabdo, old CVA, dementia, very poor prognosis and is DNI at this time. Myakel Betts DO EHSAN
[2017-05-29] MEDS: Meropenem 1g/NS 100mL IVPB 1 GM/100 ML PIGGYBACK IVPB SCH (10:47)
[2017-05-29] MEDS: levETIRAcetam 500 mg/5ml UD cups GT SCH ×2 (10:47→18:40)
[2017-05-29] MEDS: Enoxaparin 40 mg Syringe SC SCH (10:48)
--- NOTE | 2017-05-29 11:30 | PN ---
DATE: SUBJECTIVE: I saw him resting in bed this morning. Last night, he was completely out of it this morning, his eyes are open. He is kind of looking a little bit. His mouth is moist. He looks better than when he came to the hospital. Clinically he still does not speak, and back to his baseline, but he looks better. PHYSICAL EXAMINATION: VITAL SIGNS: He has a 99 temperature, 104 pulse, 111/54 blood pressure, 18 respiratory rate, and 100% O2 sat on nasal cannula. HEENT: Head is atraumatic and normocephalic. Mouth is getting moist. The eyes are moving around now. He looks like he is trying to look. NECK: Supple. HEART: Regular rate. LUNGS: Decreased breath sounds, but clear. ABDOMEN: Soft. Positive bowel sounds. Positive colostomy and feeding tube. Also, he getting feedings. EXTREMITIES: He has contracture of all four extremities with severe ulcer to heels and severe ulcer grade IV to buttocks and sacral area, not in good repair. MEDICATIONS: He is currently Colace, folic acid, insulin coverage, Keppra, Lopressor, Lovenox, Protonix, IV fluids, Xalatan, Xopenex, and Zosyn IV. LABORATORY DATA: His sodium is up to 141 better when he came in. His potassium is better 4.3 than when he came in. BUN is better at 34, creatinine is better 1.2, and GFR is 60, which is better. His blood sugar has been 145. I will put him on insulin coverage. His calcium is 8.9, total bilirubin is 1.2, AST is 39 better, ALT is 41, alkaline phosphatase is 264 better, total protein 7.5, and albumin is 2.9. White count came down to 15.9 from 18.1, better. Hemoglobin dropped to 8.2. He might need be transfused if he drops to the 7, 24.8 hematocrit, and 439 platelets. ASSESSMENT AND PLAN: He is being seen by Surgery and they recommend air mattress, turn every 2, heel supports, DuoDERM and antibiotics. He might need further I&D depending what surgery thinks. Also to consult with Infectious Disease hoping they come in this morning to adjust the antibiotics if needed. Check the labs tomorrow. I think he is slowly improving as far the infection, see what we can do about the skin and decubitus ulcers. HE IS A DNI. Maykel Betts DO
--- NOTE | 2017-05-29 13:47 | CARD ---
APPROVED REPORT EKG Measurement Heart [id number] <Conclusion> Sinus tachycardia Possible Left atrial enlargement Low voltage QRS Nonspecific ST abnormality Abnormal ECG
[2017-05-29] MEDS: Sodium Chloride 0.45% 1,000 ML IV SCH (18:51)
[2017-05-29] MEDS: Latanoprost 2.5 ml Opht Soln OD SCH (22:03)
--- NOTE | 2017-05-30 00:43 | CON ---
LOCATION: The patient seen earlier in 269, bed 1. CHIEF COMPLAINT: The patient is a poor historian, unable to give any history and it is reported that the patient had shortness of breath in the emergency room. HISTORY OF PRESENT ILLNESS: This is a 71-year-old male with past medical history of hypertension and diabetes mellitus, cerebrovascular accident, bedridden, contracted and had a recent hospitalization in [facility] and the patient with hypertension, urinary tract infection, history of Klebsiella bacteremia, history of ESBL Klebsiella urinary tract infection, history of Proteus urinary tract infection and history of seizures and a PEG tube or colostomy and glaucoma surgery in the past who is now admitted with shortness of breath through the emergency room and the patient is chronically ill, contracted, 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 REVIEW OF SYSTEMS: Reveals there has been shortness of breath reported and there are low-grade fevers reported and no chest pain is reported and unable to determine if there is any abdominal pain, diarrhea or constipation reported. PAST MEDICAL HISTORY: Significant for dementia, cerebrovascular accident, seizures, diabetes mellitus, hypertension, Klebsiella bacteremia, ESBL Klebsiella urinary tract infection, decubitus ulcers, Proteus urinary tract infections. PAST SURGICAL HISTORY: Significant for a PEG tube placement and colostomy and glaucoma. 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 MEDICATIONS: Include Keppra, omeprazole, Lopressor, folic acid. PHYSICAL EXAMINATION: VITAL SIGNS: The patient is in bed with a temperature of 99.4, respiratory rate was 33 at one point and down to 18, heart rate of 105, blood pressure is 95/40. HEENT: Unremarkable. NECK: Supple. LUNGS: Decreased breath sounds. HEART: Normal S1 and S2. ABDOMEN: Soft. EXTREMITIES: The patient has multiple decubitus ulcers on the hip and sacral decubitus ulcers on examination. LABORATORY DATA: Reveal the patient's white count to be 18,000, hemoglobin of 9, platelets of 412, 90% granulocytosis. Sed rate of 135 and BUN of 49, creatinine of 1.5, glucose of 138. AST is 89, alk phos is 337. LDH is 1015 and procalcitonin is 14.1. Urinalysis reveals 25 to 30 wbc's, yeast in urine. Microbiology reveals gram-negative rods in the blood and the patient had a CAT scan which reveals the patient to have possibility of osteomyelitis of the femoral head, neck and greater trochanteric region. ASSESSMENT AND PLAN: He is a 71-year-old male with history of diabetes, hypertension, seizures, dementia, cerebrovascular accident, extended-spectrum beta-lactamase Klebsiella in the past who is now admitted with severe sepsis with gram-negative cami bacteremia, urine as the source with acute kidney injury. Last creatinine on discharge on 05/03 was 0.7 and the patient was admitted with a creatinine of 1.5. We will start the patient on meropenem pending identification of gram-negative cami, local wound care and we will check on the urine cultures and the gram-negative rods in the blood and we will make further recommendations. Overall, prognosis is quite poor, should consider hospice care and supportive care for this patient who appears chronically debilitated, end stage and frail with no quality of life. Nayan Perdomo MD
[2017-05-30] MEDS: Levalbuterol 0.63 MG/3 ML Inhal Soln UD IH SCH ×4 (02:12→20:34)
[2017-05-30 07:26] LABS: HEMATOCRIT 24.7 % (42.0-52.0); MEAN CELL VOLUME 77.2 fl (80.0-105.0); MEAN CORPUSCULAR HEMOGLOBIN 25.9 pg (25.0-35.0); MEAN CORPUSCULAR HGB CONC 33.6 g/dl (31.0-37.0); MEAN PLATELET VOLUME 8.6 fl (7.0-11.0); RED CELL DISTRIBUTION WIDTH 16.1 % (11.5-14.5); WHITE BLOOD COUNT 13.5 10^3/ul (4.5-11.0)
[2017-05-30 07:55] LABS: ALB/GLOB RATIO 0.7 (1.1-1.8); ALKALINE PHOSPHATASE 290 U/L (38-126); ALT/SGPT 34 U/L (7-56); AST/SGOT 38 U/L (17-59); BILIRUBIN,TOTAL 0.5 mg/dL (0.2-1.3); BLOOD UREA NITROGEN 26 mg/dL (7-21); CALCIUM 9.1 mg/dL (8.4-10.5); CARBON DIOXIDE 15 mmol/L (21-33); CHLORIDE 119 mmol/L (98-107); GFR AFRICAN-AMERICAN > 60; GLUCOSE,RANDOM 164 mg/dL (70-110); POTASSIUM 3.9 mmol/L (3.6-5.0); SODIUM 145 mmol/L (132-148); TOTAL PROTEIN 7.6 g/dL (5.8-8.3)
[2017-05-30] MEDS: Insulin Reg-HIGH-Coverage SC SCH ×4 (08:39→22:30)
[2017-05-30] MEDS: Meropenem 1g/NS 100mL IVPB 1 GM/100 ML PIGGYBACK IVPB SCH ×2 (09:34→22:24)
[2017-05-30] MEDS: Enoxaparin 40 mg Syringe SC SCH (09:34)
[2017-05-30] MEDS: levETIRAcetam 500 mg/5ml UD cups GT SCH ×2 (11:47→18:07)
--- NOTE | 2017-05-30 14:10 | PN ---
DATE: SUBJECTIVE: Rima is resting comfortably in bed. He is on isolation for infection. He is on IV antibiotics. He is looking better. He is looking with his eyes more appropriate for him. Mouth is moist, that is basically his baseline, contracted in bed and now he is getting rotated. He is septic and has a large sacral ulcer. He is being seen by Infectious Disease and Surgery. PHYSICAL EXAMINATION: VITAL SIGNS: He has a 97.8 temperature, 100 pulse, 113/59 blood pressure, 18 respiratory rate, 100% O2 saturation on nasal cannula. HEENT: Head is atraumatic, normocephalic. The mouth is open in the O sign, but the mouth is moist. Eyes are open and staring. HEART: Regular rate. LUNGS: Decreased breath sounds with poor inspiration. ABDOMEN: Soft. Positive bowel sounds. Positive colostomy and PEG tube. EXTREMITIES: All 4 extremities are contracted. He has got ulcers on his skin of the heels and the sacral have large stage IV, very bad. MEDICATIONS: He is currently on Colace, folic acid, insulin coverage, Keppra, Lopressor, Lovenox, Merrem, Protonix, IV fluids, Xalatan, and Xopenex. LABORATORY DATA: He has a 13.5 white count, which is getting better, it was 18, 15, and was 13, hemoglobin is 8.3 holding, 24.7 hematocrit with a 43,000 platelets. He has a 141 sodium, potassium 4.3, BUN is 34, creatinine 1.2, getting better slowly. Last blood sugar was 191, calcium is 8.9, total bilirubin is 1.2, AST is 39, ALT is 41, alkaline phosphatase is 264, and total protein 7.5. He has large leukocytes in the urine. He has got Gram-negative rods in the blood. ASSESSMENT AND PLAN: Continue with aggressive treatment with IV antibiotics, good skin care, rotating every 2 hours. As per Infectious Disease and Surgery, he is in poor prognosis. Checking his labs tomorrow. Maykel Betts DO
--- NOTE | 2017-05-30 15:44 | CP.PCM.PN ---
Subjective - Date & Time of Evaluation Date of Evaluation: 05/30/17 Time of Evaluation: 11:15 - Subjective Subjective: Now having diarrhea. No fevers overnight. Objective - Vital Signs/Intake and Output Vital Signs (last 24 hours): Temp Pulse Resp BP Pulse Ox 97.8 F 100 H 18 113/59 L 100 05/30/17 05:54 05/30/17 05:54 05/30/17 05:54 05/30/17 05:54 05/30/17 05:54 Intake and Output: 05/30/17 05/30/17 06:59 18:59 Intake Total 1820 Output Total 825 Balance 995 - Medications Medications: Current Medications Docusate Sodium (Colace Liquid) 50 mg GT DAILY PRN PRN Reason: Constipation Enoxaparin Sodium (Lovenox) 40 mg SC DAILY [facility] PRN Reason: Protocol Last Admin: 05/30/17 09:34 Dose: 40 mg Folic Acid (Folic Acid) 1 mg GT DAILY [facility] Last Admin: 05/30/17 09:34 Dose: 1 mg Sodium Chloride (Sodium Chloride 0.45%) 1,000 mls @ 30 mls/hr IV .Q24H [facility] Last Admin: 05/29/17 18:51 Dose: Not Given Meropenem 1g/NS 100mL IVPB (Meropenem 1g/Ns 100ml Ivpb) 1 gm in 100 mls @ 100 mls/hr IVPB Q12 [facility] PRN Reason: Protocol Stop: 06/07/17 10:23 Last Admin: 05/30/17 09:34 Dose: 100 mls/hr Insulin Human Regular (Humulin R High) 0 units SC ACHS [facility] PRN Reason: Protocol Last Admin: 05/30/17 08:39 Dose: 2 units Latanoprost (Xalatan Opht) 1 ml OD HS [facility] Last Admin: 05/29/17 22:03 Dose: 1 ml Levalbuterol HCl (Xopenex) 0.63 mg IH [id number] [facility] Last Admin: 05/30/17 07:20 Dose: 0.63 mg Levetiracetam (Keppra) 750 mg GT BID [facility] Last Admin: 05/29/17 18:40 Dose: 750 mg Metoprolol Tartrate (Lopressor) 25 mg GT BID [facility] Last Admin: 05/30/17 09:34 Dose: 25 mg Pantoprazole Sodium (Protonix Inj) 40 mg IVP DAILY [facility] Last Admin: 05/30/17 09:35 Dose: 40 mg - Labs Labs: 05/30/17 07:00 05/30/17 07:00 PT 12.6 Seconds (9.9-11.8) H 05/28/17 12:45 INR 1.17 (0.93-1.08) H 05/28/17 12:45 APTT 30.8 Seconds (23.7-30.8) 05/28/17 12:45 - Constitutional Appears: Cachectic, Chronically Ill - Head Exam Head Exam: NORMAL INSPECTION - Neck Exam Neck Exam: absent: Meningismus - Respiratory Exam Respiratory Exam: Decreased Breath Sounds - Cardiovascular Exam Cardiovascular Exam: +S1, +S2 - GI/Abdominal Exam GI & Abdominal Exam: Soft. absent: Tenderness - Extremities Exam Additional comments: right hip with dressings in place Assessment and Plan - Assessment and Plan (Free Text) Plan: Assessment sepsis due to gram negative bacilli bacteremia with infected sacral ulcers, UTI , and possible ostemyelitis of right hip (also growing GNB in the hip) c. diff. associated diarrhea history of infected decubitus ulcers of the right and left hip areas (right hip is stage 4), grew ESBL-producing Klebsiella and PRoteus history of UTI with Pseudomonas history of C diff associated diarrhea CVA DM HTN dementia decubitus ulcer of the hip area Plan continue meropenem day 2 identification and sensitivities of the gram negative bacilli in the blood and right hip follow up plans of surgery for the right hip - would need prolonged antibiotics with the possible osteomyelitis of the hip started PO Vancomycin will monitor clinically
[2017-05-30] MEDS: Vancomycin 25 MG/ML PO SCH ×2 (18:07→22:25)
[2017-05-30] MEDS: Latanoprost 2.5 ml Opht Soln OD SCH (22:26)
[2017-05-31] MEDS: Levalbuterol 0.63 MG/3 ML Inhal Soln UD IH SCH ×4 (02:50→20:12)
[2017-05-31 06:59] LABS: MEAN CELL VOLUME 78.2 fl (80.0-105.0); MEAN CORPUSCULAR HEMOGLOBIN 25.5 pg (25.0-35.0); MEAN CORPUSCULAR HGB CONC 32.6 g/dl (31.0-37.0); MEAN PLATELET VOLUME 8.5 fl (7.0-11.0); RED CELL DISTRIBUTION WIDTH 16.4 % (11.5-14.5)
[2017-05-31 07:06] LABS: HEMATOCRIT 23.3 % (42.0-52.0)
[2017-05-31 07:38] LABS: ALB/GLOB RATIO 0.6 (1.1-1.8); ALKALINE PHOSPHATASE 271 U/L (38-126); ALT/SGPT 37 U/L (7-56); AST/SGOT 47 U/L (17-59); BILIRUBIN,TOTAL 0.5 mg/dL (0.2-1.3); BLOOD UREA NITROGEN 21 mg/dL (7-21); CALCIUM 9.2 mg/dL (8.4-10.5); CARBON DIOXIDE 16 mmol/L (21-33); CHLORIDE 120 mmol/L (98-107); GFR AFRICAN-AMERICAN > 60; GLUCOSE,RANDOM 130 mg/dL (70-110); POTASSIUM 3.7 mmol/L (3.6-5.0); SODIUM 146 mmol/L (132-148); TOTAL PROTEIN 7.5 g/dL (5.8-8.3)
[2017-05-31] MEDS: Sodium Chloride 0.45% 1,000 ML IV SCH (08:49)
[2017-05-31] MEDS: Insulin Reg-HIGH-Coverage SC SCH ×4 (08:49→21:41)
--- NOTE | 2017-05-31 09:51 | PN ---
DATE: SUBJECTIVE: I saw Rima in bed. His eyes are closed. He is sleeping. He is breathing better. Mouth is moist. He is on multiple IVs. PHYSICAL EXAMINATION: VITAL SIGNS: Are 97.1 temperature, 85 pulse, 122/85 blood pressure, 18 respiratory rate. HEENT: Head is atraumatic, normocephalic. Throat is moist. HEART: Regular rate. LUNGS: Decreased breath sounds, but clear. ABDOMEN: Soft. Positive colostomy. Positive PEG tube. EXTREMITIES: Extremities are contracted. He has got heel ulcers and large sacral ulcer. MEDICATIONS: He is currently on Colace, folic acid, insulin, Keppra, Lasix, Lopressor, Lovenox, Merrem, Protonix, IV fluids, vancomycin, Xalatan and Xopenex. LABORATORY DATA: Lasix is a onetime dose in between two units of packed red blood cells that I am transfusing today because his hemoglobin is dropped to 7.6, hematocrit 22.3, platelets are 544, white count is high at 13. He has 136 sodium, potassium 3.7, BUN is 21, creatinine 0.8, GFR is greater than 60, sugar is 130, calcium is 9.2. Total bilirubin is 0.5, AST is 47, ALT is 37, alkaline phosphatase is 279, and total protein is 7.5. ASSESSMENT AND PLAN: He is being seen by Infectious Disease, Surgery. I am transfusing two units of packed red blood cells today. Continue with IV antibiotics. Yesterday, case management counseled him for possible Long-Term Acute Care. I do not know how the family is going to take care of him at home. We decide also Continue with antibiotics. Checking his labs. I will see if Long-Term Acute Care is an option or not. He is septic, anemic, diabetes, renal insufficiency, rhabdo, right hip osteomyelitis. Maykel Betts DO MTDDamaris
[2017-05-31] MEDS: Vancomycin 25 MG/ML PO SCH ×4 (12:43→21:48)
[2017-05-31] MEDS: Meropenem 1g/NS 100mL IVPB 1 GM/100 ML PIGGYBACK IVPB SCH ×2 (12:44→21:44)
[2017-05-31] MEDS: Enoxaparin 40 mg Syringe SC SCH (12:44)
[2017-05-31] MEDS: levETIRAcetam 500 mg/5ml UD cups GT SCH ×2 (12:45→18:32)
--- NOTE | 2017-05-31 14:01 | CP.PCM.PN ---
Subjective - Date & Time of Evaluation Date of Evaluation: 05/31/17 Time of Evaluation: 12:15 - Subjective Subjective: No fevers overnight, not in distress. Objective - Vital Signs/Intake and Output Vital Signs (last 24 hours): Temp Pulse Resp BP Pulse Ox 98.5 F 75 20 139/80 97 05/31/17 07:30 05/31/17 07:30 05/31/17 07:30 05/31/17 08:51 05/31/17 07:30 Intake and Output: 05/31/17 05/31/17 06:59 18:59 Intake Total 0 Output Total 1000 Balance -1000 - Medications Medications: Current Medications Docusate Sodium (Colace Liquid) 50 mg GT DAILY PRN PRN Reason: Constipation Enoxaparin Sodium (Lovenox) 40 mg SC DAILY [facility] PRN Reason: Protocol Last Admin: 05/30/17 09:34 Dose: 40 mg Folic Acid (Folic Acid) 1 mg GT DAILY [facility] Last Admin: 05/30/17 09:34 Dose: 1 mg Sodium Chloride (Sodium Chloride 0.45%) 1,000 mls @ 30 mls/hr IV .Q24H [facility] Last Admin: 05/31/17 08:49 Dose: 30 mls/hr Meropenem 1g/NS 100mL IVPB (Meropenem 1g/Ns 100ml Ivpb) 1 gm in 100 mls @ 100 mls/hr IVPB Q12 [facility] PRN Reason: Protocol Stop: 06/07/17 10:23 Last Admin: 05/30/17 22:24 Dose: 100 mls/hr Insulin Human Regular (Humulin R High) 0 units SC ACHS [facility] PRN Reason: Protocol Last Admin: 05/31/17 08:49 Dose: 2 units Latanoprost (Xalatan Opht) 1 ml OD HS [facility] Last Admin: 05/30/17 22:26 Dose: 1 ml Levalbuterol HCl (Xopenex) 0.63 mg IH [id number] [facility] Last Admin: 05/31/17 07:23 Dose: 0.63 mg Levetiracetam (Keppra) 750 mg GT BID [facility] Last Admin: 05/30/17 18:07 Dose: 750 mg Metoprolol Tartrate (Lopressor) 25 mg GT BID [facility] Last Admin: 05/30/17 18:07 Dose: 25 mg Pantoprazole Sodium (Protonix Inj) 40 mg IVP DAILY [facility] Last Admin: 05/30/17 09:35 Dose: 40 mg Vancomycin HCl (Vancocin 25 Mg/Ml (Oral Use)) 125 mg PO QID [facility] PRN Reason: Protocol Last Admin: 05/30/17 22:25 Dose: 125 mg - Labs Labs: 05/31/17 06:42 05/31/17 06:42 PT 12.6 Seconds (9.9-11.8) H 05/28/17 12:45 INR 1.17 (0.93-1.08) H 05/28/17 12:45 APTT 30.8 Seconds (23.7-30.8) 05/28/17 12:45 - Constitutional Appears: Non-toxic, No Acute Distress - Head Exam Head Exam: NORMAL INSPECTION - ENT Exam ENT Exam: Mucous Membranes Moist - Neck Exam Neck Exam: absent: Meningismus - Respiratory Exam Respiratory Exam: Decreased Breath Sounds - Cardiovascular Exam Cardiovascular Exam: +S1, +S2 - GI/Abdominal Exam GI & Abdominal Exam: Soft. 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 diff. associated diarrhea history of infected decubitus ulcers of the right and left hip areas (right hip is stage 4), grew ESBL-producing Klebsiella and PRoteus history of UTI with Pseudomonas history of C diff associated diarrhea CVA DM HTN dementia decubitus ulcer of the hip area Plan continue meropenem day 3 pending final results of the blood and right hip cx follow up plans of surgery for the right hip - would need prolonged antibiotics with the probable osteomyelitis of the hip (at least 4-6 weeks) - would prefer IV ertapenem 1 gm daily for ease of infusion continue PO Vancomycin for 10-14 days will continue to monitor clinically
[2017-06-01] MEDS ORDERED: Latanoprost 2.5 ml Opht Soln OD SCH (00:31)
[2017-06-01] MEDS: Latanoprost 2.5 ml Opht Soln OD SCH (00:43)
[2017-06-01 01:00] VITALS: RESP 20; O2SAT 100
[2017-06-01] MEDS: Levalbuterol 0.63 MG/3 ML Inhal Soln UD IH SCH ×3 (01:07→13:35)
[2017-06-01 04:29] VITALS: PULSE 89; TEMP 97.6
[2017-06-01] MEDS: Sodium Chloride 0.45% 1,000 ML IV SCH (04:30)
[2017-06-01 07:35] LABS: HEMATOCRIT 30.8 % (42.0-52.0); MEAN CELL VOLUME 79.6 fl (80.0-105.0); MEAN CORPUSCULAR HEMOGLOBIN 26.9 pg (25.0-35.0); MEAN CORPUSCULAR HGB CONC 33.8 g/dl (31.0-37.0); MEAN PLATELET VOLUME 8.7 fl (7.0-11.0); RED CELL DISTRIBUTION WIDTH 16.5 % (11.5-14.5); WHITE BLOOD COUNT 15.9 10^3/ul (4.5-11.0)
[2017-06-01] MEDS: Insulin Reg-HIGH-Coverage SC SCH ×3 (08:01→16:30)
[2017-06-01 08:21] LABS: ALB/GLOB RATIO 0.7 (1.1-1.8); ALKALINE PHOSPHATASE 275 U/L (38-126); ALT/SGPT 40 U/L (7-56); AST/SGOT 43 U/L (17-59); BILIRUBIN,TOTAL 0.7 mg/dL (0.2-1.3); BLOOD UREA NITROGEN 24 mg/dL (7-21); CALCIUM 9.2 mg/dL (8.4-10.5); CARBON DIOXIDE 19 mmol/L (21-33); CHLORIDE 118 mmol/L (98-107); GFR AFRICAN-AMERICAN > 60; GLUCOSE,RANDOM 126 mg/dL (70-110); POTASSIUM 3.8 mmol/L (3.6-5.0); SODIUM 148 mmol/L (132-148)
[2017-06-01 08:27] VITALS: BP 121/66
--- NOTE | 2017-06-01 09:03 | PN ---
DATE: SUBJECTIVE: He is resting in bed. He is on isolation. He is having O sign, but the mouth is okay. He is back to his baseline. He does not talk. His eyes are open. He does have IV line. PHYSICAL EXAMINATION: VITAL SIGNS: Are 97.6 temperature, 89 pulse, 129/60 blood pressure, 20 respiratory rate. HEENT: His head is atraumatic, normocephalic. His mouth is in O sign. Mouth is dry. HEART: Regular rate. LUNGS: Decreased breath sounds, but clear. ABDOMEN: Soft. Positive bowel sounds. He had a colostomy and a feeding tube. EXTREMITIES: All 4 extremities are contracted. He has ulcers and has a large sacral stage IV ulcer on the back. LABORATORY DATA: His white count is 15.9, hemoglobin 10.4, hematocrit 30.8, platelets are 592. He has a 146 sodium, potassium is 3.7, BUN 29, creatinine 0.8, GFR is greater than 60, sugar is 145, calcium is 9.2. Total bilirubin is 0.5, AST is 47, ALT is 37, alkaline phosphatase 271, total protein 7.5. ASSESSMENT AND PLAN: He has got multiple problems. He is septic. He is both dehydrated and anemic. He has a right hip osteomyelitis, old cerebrovascular accident, dementia, rhabdomyolysis. He has a urinary tract infection also. We will try and get him to [facility] for 6 weeks of IV antibiotics for his right hip osteomyelitis, sacral ulcer care, anemia. Hopefully, we can get him there in the next 24 hours. Maykel Betts DO MTDDamaris
[2017-06-01] MEDS: levETIRAcetam 500 mg/5ml UD cups GT SCH (10:05)
[2017-06-01] MEDS: Enoxaparin 40 mg Syringe SC SCH (10:06)
[2017-06-01] MEDS: Meropenem 1g/NS 100mL IVPB 1 GM/100 ML PIGGYBACK IVPB SCH (10:07)
[2017-06-01] MEDS: Vancomycin 25 MG/ML PO SCH ×2 (10:08→14:57)
[2017-06-01] MEDS ORDERED: Meropenem 1g/NS 100mL IVPB 1 GM/100 ML PIGGYBACK IVPB SCH (14:00)
--- NOTE | 2017-06-01 14:56 | CP.PCM.PN ---
Subjective - Date & Time of Evaluation Date of Evaluation: 06/01/17 Time of Evaluation: 12:15 - Subjective Subjective: Comfortable, no fevers. Objective - Vital Signs/Intake and Output Vital Signs (last 24 hours): Temp Pulse Resp BP Pulse Ox 97.6 F 89 20 121/66 100 06/01/17 08:26 06/01/17 08:26 06/01/17 08:26 06/01/17 08:26 06/01/17 08:26 Intake and Output: 06/01/17 06/01/17 06:59 18:59 Intake Total 781 Output Total 400 Balance 381 - Medications Medications: Current Medications Docusate Sodium (Colace Liquid) 50 mg GT DAILY PRN PRN Reason: Constipation Enoxaparin Sodium (Lovenox) 40 mg SC DAILY HENRIQUE PRN Reason: Protocol Last Admin: 06/01/17 10:06 Dose: 40 mg Folic Acid (Folic Acid) 1 mg GT DAILY [facility] Last Admin: 06/01/17 10:08 Dose: 1 mg Sodium Chloride (Sodium Chloride 0.45%) 1,000 mls @ 30 mls/hr IV .Q24H [facility] Last Admin: 06/01/17 04:30 Dose: 30 mls/hr Meropenem 1g/NS 100mL IVPB (Meropenem 1g/Ns 100ml Ivpb) 1 gm in 100 mls @ 100 mls/hr IVPB Q8 [facility]ENRIQUE PRN Reason: Protocol Stop: 06/10/17 14:01 Insulin Human Regular (Humulin R High) 0 units SC ACHS [facility]ENRIQUE PRN Reason: Protocol Last Admin: 06/01/17 08:01 Dose: Not Given Latanoprost (Xalatan Opht) 0 ml OD HS [facility]RIQUE Levalbuterol HCl (Xopenex) 0.63 mg IH [id number] [facility] Last Admin: 06/01/17 07:25 Dose: 0.63 mg Levetiracetam (Keppra) 750 mg GT BID [facility] Last Admin: 06/01/17 10:05 Dose: 750 mg Metoprolol Tartrate (Lopressor) 25 mg GT BID [facility] Last Admin: 06/01/17 10:08 Dose: 25 mg Pantoprazole Sodium (Protonix Inj) 40 mg IVP DAILY [facility] Last Admin: 06/01/17 10:06 Dose: 40 mg Vancomycin HCl (Vancocin 25 Mg/Ml (Oral Use)) 125 mg PO QID HENRIQUE PRN Reason: Protocol Last Admin: 06/01/17 10:08 Dose: 125 mg - Labs Labs: 06/01/17 07:00 06/01/17 07:00 PT 12.6 Seconds (9.9-11.8) H 05/28/17 12:45 INR 1.17 (0.93-1.08) H 05/28/17 12:45 APTT 30.8 Seconds (23.7-30.8) 05/28/17 12:45 - Constitutional Appears: Non-toxic, No Acute Distress - Head Exam Head Exam: NORMAL INSPECTION - ENT Exam ENT Exam: Mucous Membranes Moist - Neck Exam Neck Exam: absent: Meningismus - Respiratory Exam Respiratory Exam: Decreased Breath Sounds - Cardiovascular Exam Cardiovascular Exam: +S1, +S2 - GI/Abdominal Exam GI & Abdominal Exam: Soft. 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 coli as well in the hip) c. diff. associated diarrhea history of infected decubitus ulcers of the right and left hip areas (right hip is stage 4), grew ESBL-producing Klebsiella and PRoteus history of UTI with Pseudomonas history of C diff associated diarrhea CVA DM HTN dementia decubitus ulcer of the hip area Plan continue meropenem day 4 follow up plans of surgery for the right hip - would need prolonged antibiotics with the probable osteomyelitis of the hip (at least 4-6 weeks but could be up to 8 weeks) - would prefer IV ertapenem 1 gm daily for ease of infusion continue PO Vancomycin for 10-14 days will continue to monitor clinically discussed with Dr. Betts
== END 2017-06-01 17:31 | DRG 871 ==
LOC: ED 11:02 → ERH 13:40 → 2RNO 16:51 → 5RNO 05-30 14:38
PROVIDERS: ADMIT Family Medicine; ATTEND Family Medicine
PROC: 3E0F7GC Introduction of Other Therapeutic Substance into Respiratory Tract, Via Natural or Artificial Opening (ICD-10-PCS; principal; 2017-05-28)
PROC: 3E0G76Z Introduction of Nutritional Substance into Upper GI, Via Natural or Artificial Opening (ICD-10-PCS; 2017-05-29)
DX: A41.50 Gram-negative sepsis, unspecified (principal); L89.154 Pressure ulcer of sacral region, stage 4; L89.214 Pressure ulcer of right hip, stage 4; N17.9 Acute kidney failure, unspecified; A04.7 Enterocolitis due to Clostridium difficile; N39.0 Urinary tract infection, site not specified; M62.82 Rhabdomyolysis; L89.312 Pressure ulcer of right buttock, stage 2; L89.229 Pressure ulcer of left hip, unspecified stage; E11.69 Type 2 diabetes mellitus with other specified complication; M86.9 Osteomyelitis, unspecified; R65.20 Severe sepsis without septic shock; E86.0 Dehydration; G30.9 Alzheimer's disease, unspecified; F02.80 Dementia in other diseases classified elsewhere, unspecified severity, without behavioral disturbance, psychotic disturbance, mood disturbance, and anxiety; K21.9 Gastro-esophageal reflux disease without esophagitis; D64.9 Anemia, unspecified; B96.20 Unspecified Escherichia coli [E. coli] as the cause of diseases classified elsewhere; I10 Essential (primary) hypertension; L89.629 Pressure ulcer of left heel, unspecified stage; L89.619 Pressure ulcer of right heel, unspecified stage; R56.9 Unspecified convulsions; Z93.1 Gastrostomy status; Z93.3 Colostomy status; Z86.73 Personal history of transient ischemic attack (TIA), and cerebral infarction without residual deficits; Z74.01 Bed confinement status; Z91.040 Latex allergy status